=== PATIENT | male | born 1965 | race Caucasian/White ===

== ENCOUNTER 2021-02-27 07:26 | Emergency (ER) | payer BC, SELFPAY ==
--- NOTE | ~2021-02-27 | XR_ITS ---
EXAMINATION: XR FOOT, RIGHT CLINICAL INFORMATION: Plantar aspect foot bruising, ecchymosis, hyperextension. COMPARISON: None TECHNIQUE: AP, lateral, and oblique views of the right foot. FINDINGS: Small ossific density adjacent to the medial aspect of the 1st metatarsal head. This appears corticated, and is suspected to be chronic. No visible acute fracture otherwise. No dislocation. Alignment is maintained. Achilles tendon insertional enthesopathy. XR/XR foot RT min 3V IMPRESSION: Small ossification adjacent to the medial aspect of the 1st metatarsal head, is suspected to be chronic. Clinically correlate for focal symptoms in this region. Otherwise, no visible acute fracture or dislocation.
[2021-02-27 07:54] VITALS: BP 158/110; PULSE 73; RESP 18; TEMP 36.8; O2SAT 100; BMI 32.1
[2021-02-27 09:44] VITALS: BP 146/93; PULSE 66; RESP 19; TEMP 36.6; O2SAT 97
--- NOTE | 2021-02-27 09:50 | ED.LOWEXIN ---
HPI - Extremity Injury (Lower) General Chief Complaint: Extremity Injury, Lower Stated Complaint: R LEG FOOT PAIN Time Seen by Provider: 02/27/21 08:44 Source: patient Mode of arrival: ambulatory History of Present Illness HPI Narrative: 55-year-old male with past medical history of hypertension presenting to the ED complaining of plantar aspect right foot pain, swelling, and ecchymosis s/p pushing truck frame last night and hearing a pop. Reports increased pain with any standing/ambulation or hyper extension. Admits was hyperextension injury. Denies direct injury/trauma or fall/crushing. Denies numbness, tingling, weakness. Related Data Previous Rx's Medication Instructions Recorded acetaminophen 500 mg tablet 500 mg PO Q6H PRN #20 tab 02/27/21 (Tylenol Extra Strength) naproxen 500 mg tablet 500 mg PO BID PRN 10 Days #20 tab 02/27/21 Allergies Allergy/AdvReac Type Severity Reaction Status Date / Time Penicillins [PENICILLINS] Allergy Unknown LIP Unverified 03/12/20 15:06 SWELLING AND MARIAN Sulfa (Sulfonamide Allergy Unknown LIPS SWELL Unverified 03/12/20 15:06 Antibiotics) WITH RASH [SULFA (SULFONAMIDE ANTIBIOTICS)] penicillin Allergy Unknown Uncoded 02/18/19 00:00 Review of Systems Review of Systems: Constitutional: No Fever, No Chills ENT/Mouth: No Ear Pain, No Nasal Congestion Cardiovascular: No Chest Pain, No SOB Respiratory: No Cough Gastrointestinal: No Nausea, No Vomiting, No Abdominal pain Musculoskeletal: + joint pain, No Myalgias, + Joint Swelling Skin: No Skin Lesions, No rash Neuro: No Weakness, No Numbness, No Paresthesias Yes all other systems are reviewed and are negative [facility] Past Medical History Attestation statement: The following information was validated with the patient. Medical History (Updated 02/27/21 @ 09:52 by KIERRA Avila) Hypertension Social History Social History Patient Tobacco Use Status: Never used Tobacco Use of substances other than those prescribed or required for medical reasons: No Advance Directives: Yes Advance Directives Information Provided: No Advance Directives on File: No Physical Exam Vital Signs: Vital Signs: Last Vital Signs Temp 97.9 F 02/27/21 09:44 Pulse 66 02/27/21 09:44 Resp 19 02/27/21 09:44 BP 146/93 H 02/27/21 09:44 Pulse Ox 97 02/27/21 09:44 Body Mass Index 32.1 Const: General: cooperative and healthy appearing Orientation/consciousness: patient oriented x3 Limitations: no limitations HENMT: Head: Yes normal to inspection Ears: hearing grossly normal bilaterally General nose exam: Normal external nose present Face and sinus: Yes normal facial exam Eyes: General: appearance normal, both eyes and all related structures EOM: EOMs intact bilaterally Neck: Neck: Yes normal visual inspection Resp: Effort & Inspection: normal respiratory effort and no respiratory distress Cardio: Rate: regular rate Peripheral pulses: dorsalis pedis present Skin: Rashes: no rashes Wounds: no wounds Neuro: General: patient oriented x3 Gait exam (Neuro): Normal gait present Extrem: Other: Plantar aspect right foot with notable swelling/ecchymosis and tenderness to palpation greater to medial aspect. Neurovascularly intact. Full range of motion intact. Sensation intact to light touch. Patient is ambulating with steady gait Course Course Course Narrative: XR foot RT min 3V IMPRESSION: Small ossification adjacent to the medial aspect of the 1st metatarsal head, is suspected to be chronic. Clinically correlate for focal symptoms in this region. ? Otherwise, no visible acute fracture or dislocation. >> patient offered hard-soled shoe however did not like the fit. Discussed needed follow-up with orthopedics/is PCP for MRI, he verbalized understanding feel safe for discharge home MDM - Extremity Injury (Lower) MDM Narrative Medical decision making narrative: 55-year-old male with past medical history of hypertension presenting to the ED complaining of plantar aspect right foot pain, swelling, and ecchymosis s/p pushing truck frame last night and hearing a pop. On exam initially hypertensive, resolved without intervention. Physical exam as above, concern for ligamental or tendon injury, low concern for fracture/dislocation Will obtain x-rays Discussed with patient likely needs MRI Lab Data Attestation: I reviewed the patient's lab results. Discharge Plan Discharge Clinical Impression: Acute foot pain Qualifiers: Laterality: right Qualified Code(s): M79.671 - Pain in right foot Patient Disposition: Home, Self-Care Instructions: Arthralgia (ED) Additional Instructions: Your x-ray did not show any acute break You likely need an MRI to look at ligamental or tendon injury Ice and elevate your foot, then apply heat Naproxen as an anti-inflammatory/pain medication, take with food Call the orthopedic doctor for follow-up Also call your primary care doctor Prescriptions: New acetaminophen [Tylenol Extra Strength] 500 mg tablet 500 mg PO Q6H PRN (Reason: pain or fever) Qty: 20 RF: 0 naproxen 500 mg tablet 500 mg PO BID PRN (Reason: pain) 10 Days Qty: 20 RF: 0 Referrals: Rodney Yee PA-C [Physician Environmental Science Program Director] - 3 days
== END 2021-02-27 10:05 | disposition home or self-care (01) ==
PROVIDERS: Emergency Provider Student in an Organized Health Care Education/Training Program; PCP Internal Medicine
DX: M79.671 Pain in right foot (principal); I10 Essential (primary) hypertension
CPT/HCPCS: 73630; 99283; 99284

== ENCOUNTER 2022-12-29 11:18 | Outpatient (REF) | payer BC, SELFPAY | END 2022-12-29 11:19 | disposition home or self-care (01) | LOC: HO.HMGCX 11:18 | PROVIDERS: PCP Internal Medicine; Visit Provider Internal Medicine | DX: J18.9 Pneumonia, unspecified organism (principal) | CPT/HCPCS: 71046 ==

== ENCOUNTER 2023-01-16 18:59 | Emergency (ER) | payer BC, SELFPAY ==
--- NOTE | ~2023-01-16 | XR_ITS ---
EXAMINATION: XR ELBOW, RIGHT CLINICAL INFORMATION: Pain COMPARISON: None available. TECHNIQUE: AP, lateral, and oblique views of the right elbow. FINDINGS: The bones and soft tissues are normal. No joint effusion. Alignment is anatomic. Joint spaces are maintained. Prominent calcification at the lateral epicondyle. XR/XR elbow RT min 3V IMPRESSION: Prominent calcification at the lateral epicondyle may be sequela of lateral epicondylitis or possibly avulsion fracture. Recommend clinical correlation and consider MRI if warranted.
[2023-01-16 19:28] VITALS: BP 172/106; PULSE 100; RESP 18; TEMP 36; O2SAT 98; BMI 35.4
--- NOTE | 2023-01-16 19:28 | ED.GENADULT ---
HPI - General Adult General Chief complaint: Extremity Injury, Upper Stated complaint: right elbow injury Time Seen by Provider: 01/16/23 20:24 Related Data Home Medications Medication Instructions Recorded Confirmed lisinopril 20 mg tablet 20 mg PO DAILY 02/13/23 metoprolol succinate 50 mg 50 mg PO DAILY 02/13/23 tablet,extended release 24 hr Previous Rx's Medication Instructions Recorded tadalafil 5 mg tablet (Cialis) 5 mg PO DAILY 90 days #90 tabs 03/03/23 Allergies Allergy/AdvReac Type Severity Reaction Status Date / Time Penicillins [PENICILLINS] Allergy Unknown LIP Verified 03/03/23 15:26 SWELLING AND MARIAN Sulfa (Sulfonamide Allergy Unknown LIPS SWELL Verified 03/03/23 15:26 Antibiotics) WITH RASH [SULFA (SULFONAMIDE ANTIBIOTICS)] [facility] Past Medical History Medical History Hypertension Social History Social History Alcohol intake: current Alcohol intake frequency: holidays/special occasions only Patient Tobacco Use Status: Never used Tobacco Physical Exam ED Vital Signs: BMI result Body Mass Index 35.4 Course Course Course Narrative: RME- 57-year-old male presents for evaluation of right elbow pain. He reports injury 1 month ago. He has been taking ibuprofen and aspirin with minimal relief of his symptoms. He has not had any imaging. Plan for x-ray of the right elbow Medications Administered Discontinued Medications Generic Name Dose Route Start Last Admin Trade Name Freq PRN Reason Stop Dose Admin Lisinopril 20 mg 01/16/23 20:50 01/16/23 20:56 Lisinopril 20 Mg Tablet PO 01/16/23 20:51 20 mg ONCE ONE Administration Protocol Metoprolol Succinate 50 mg 01/16/23 20:50 01/16/23 20:56 Metoprolol Succinate Er 50 Mg Tab.Er.24h PO 01/16/23 20:51 50 mg ONCE ONE Administration Protocol Discharge Plan Discharge Clinical Impression: Elbow sprain, Hypertension Patient Disposition: Home, Self-Care Instructions: Elbow Sprain (ED), Hypertension (ED), R.I.C.E. Treatment (ED) Additional Instructions: Please take your blood pressure medication on a regular basis Prescriptions: No Action tadalafil [Cialis] 5 mg tablet 5 mg PO DAILY 90 Days Qty: 90 0RF Rx Instructions: BIN [id number] [facility] [id number] metoprolol succinate 50 mg tablet extended release 24 hr 50 mg PO DAILY lisinopril 20 mg tablet 20 mg PO DAILY Referrals: Damion Moreno MD [Physician] - 01/18/23 Lamont Bennett MD [Primary Care Provider] - 01/18/23 Interventions: ED Discharge Assessment Last Done: 01/16/23 22:34 Discharge Date/Time: 01/16/23 22:35
[2023-01-16 20:40] VITALS: BP 183/116; PULSE 93; RESP 18; TEMP 36.4; O2SAT 97
--- NOTE | 2023-01-16 20:48 | PC.NURSE ---
reports was working on car laying on concrete for a while- pinkness to inside of elbow. md attending in room aware elevated bp 180s/116. denies dizziness/sob/cp. denies trauma to area. reports has not taken bp meds today and not sure which ones he takes
[2023-01-16] MEDS: Metoprolol Succinate ER 50 MG TAB.ER.24H PO (20:56)
[2023-01-16] MEDS: lisinopriL 20 MG TABLET PO (20:56)
--- NOTE | 2023-01-16 21:01 | ED.EXTPRO ---
HPI - Extremity Problem General Chief complaint: Extremity Injury, Upper Stated complaint: right elbow injury Time Seen by Provider: 01/16/23 20:24 History of Present Illness HPI Narrative: Patient is a 57-year-old male presents today with having a 1 month history of right elbow pain. The pain is most apparent over the medial epicondyle. Patient denies any trauma. About a month ago patient was working on a car. He subsequently had pain the next morning. There is no specific trauma. Denies any systemic complaints. No fever no chills. Has a history of hypertension but is noncompliant with his medications. Patient denies any diaphoresis. No chest pain or shortness of breath. No abdominal pain. Pain is improved with Motrin. Patient has been taking Motrin for about a month. Related Data Previous Rx's Medication Instructions Recorded acetaminophen 500 mg tablet 500 mg PO Q6H PRN pain or fever 02/27/21 (Tylenol Extra Strength) #20 tabs naproxen 500 mg tablet 500 mg PO BID PRN pain 10 days #20 02/27/21 tabs Allergies Allergy/AdvReac Type Severity Reaction Status Date / Time Penicillins [PENICILLINS] Allergy Unknown LIP Verified 01/16/23 19:28 SWELLING AND MARIAN Sulfa (Sulfonamide Allergy Unknown LIPS SWELL Verified 01/16/23 19:28 Antibiotics) WITH RASH [SULFA (SULFONAMIDE ANTIBIOTICS)] Review of Systems Review of Systems: No fever no chills no chest pain or shortness of breath no nausea no vomiting no diaphoresis Yes all other systems are reviewed and are negative [facility] Past Medical History Attestation statement: The following information was validated with the patient. Medical History Hypertension Social History Social History Alcohol intake: current Alcohol intake frequency: holidays/special occasions only Patient Tobacco Use Status: Never used Tobacco Use of substances other than those prescribed or required for medical reasons: No Advance Directives: No Advance Directives Information Provided: No Physical Exam Vital Signs: Vital Signs: Last Vital Signs Temp 97.6 F 01/16/23 20:40 Pulse 93 01/16/23 20:40 Resp 18 01/16/23 20:40 BP 183/116 H 01/16/23 20:40 Pulse Ox 97 01/16/23 20:40 O2 Del Method Room Air 01/16/23 20:40 BMI result Body Mass Index 35.4 Appearance: Alert. Oriented X3. No acute distress. Eyes: Pupils equal, round and reactive to light. ENT: Pharynx normal. Neck: Normal inspection. Neck supple. No lymph nodes noted. No crepitus CVS: Normal heart rate and rhythm. Pulses normal. Normal S1 and S2 Respiratory: No respiratory distress. Breath sounds normal. No Wheezing. No rales Abdomen: Soft and nontender. No rigidity. No distention. good BS x4 Skin: Skin warm and dry. Normal skin color. Normal skin turgor. Extremities: Examination of the right elbow showed no tenderness on palpation of the medial or lateral epicondyle. No tenderness on palpation over the olecranon. Range of motion grossly intact. Supination intact distally neurovascularly intact sensation over the median radial ulnar nerve intact movement over the wrist intact there is no anatomical snuffbox tenderness. Movement over the finger intact. Capillary refill less than 2 seconds. Skin intact Neuro: Oriented X 3. No motor deficit. No sensory deficit. Moving all extermities. No slurred speech Medications Administered Discontinued Medications Generic Name Dose Route Start Last Admin Trade Name Freq PRN Reason Stop Dose Admin Lisinopril 20 mg 01/16/23 20:50 01/16/23 20:56 Lisinopril 20 Mg Tablet PO 01/16/23 20:51 20 mg ONCE ONE Administration Protocol Metoprolol Succinate 50 mg 01/16/23 20:50 01/16/23 20:56 Metoprolol Succinate Er 50 Mg Tab.Er.24h PO 01/16/23 20:51 50 mg ONCE ONE Administration Protocol Medical Decision Making Medical Decision Making [facility] Narrative: Patient well appearing no acute distress. X-ray of the elbow showed no acute fracture. There is possible lateral epicondyle inflammation. But there is no acute tenderness there. Will have patient follow-up with Orthopedic on an outpatient basis. patient's blood pressure was extremely elevated. When asked he has been noncompliant with his medication including metoprolol and lisinopril. These medication was given Bactrim will monitor for an hour and recheck patient's blood pressure. Differential Diagnosis Differential Diagnoses: The differential diagnosis associated with the presentation includes Hypertension, tendinitis, little league elbow, tennis elbow Independent Interpretation I performed an independent interpretation of an: Plain X-Ray Interpretation: X-ray showed no acute fracture Radiology Impression Discussion of test interpretation with radiology: I have reviewed the radiologist's reading. Radiologist Impression: Question tendinitis over the lateral epicondyle versus avulsion fracture Discharge Plan Discharge Clinical Impression: Elbow sprain, Hypertension Patient Disposition: Home, Self-Care Instructions: Hypertension (ED), Elbow Sprain (ED), R.I.C.E. Treatment (ED) Additional Instructions: Please take your blood pressure medication on a regular basis Prescriptions: No Action acetaminophen [Tylenol Extra Strength] 500 mg tablet 500 mg PO Q6H PRN (Reason: pain or fever) Qty: 20 0RF naproxen 500 mg tablet 500 mg PO BID PRN (Reason: pain) 10 Days Qty: 20 0RF Referrals: Damion Moreno MD [Physician] - 01/18/23 Lamont Bennett MD [Primary Care Provider] - 01/18/23
[2023-01-16 21:54] VITALS: BP 174/114
[2023-01-16 22:03] VITALS: BP 172/106
== END 2023-01-16 22:35 | disposition home or self-care (01) ==
PROVIDERS: Emergency Provider Emergency Medicine Emergency Medical Services; PCP Internal Medicine
DX: S53.401A Unspecified sprain of right elbow, initial encounter (principal); X58.XXXA Exposure to other specified factors, initial encounter; I10 Essential (primary) hypertension; Z91.148 Patient's other noncompliance with medication regimen for other reason; Z79.1 Long term (current) use of non-steroidal anti-inflammatories (NSAID); Y93.9 Activity, unspecified; Y92.89 Other specified places as the place of occurrence of the external cause; Y99.9 Unspecified external cause status
CPT/HCPCS: 73080; 99283; 99284

== ENCOUNTER 2023-02-13 12:46 | Outpatient (AMB) | payer BC, SELFPAY ==
--- NOTE | 2023-02-13 13:07 | MHC.OFFVIS ---
Intake Intake Visit Reasons: low testosterone Intake Note: New Patient presents for initial visit low testosterone (testerone 141) Urology Medications: none Blood Thinner: none Area Forester Required: No Accompanied by: Self / Same As Patient Allergies Penicillins [PENICILLINS] Allergy (Unknown, Verified 02/13/23 16:21) LIP SWELLING AND MARIAN Sulfa (Sulfonamide Antibiotics) [SULFA (SULFONAMIDE ANTIBIOTICS)] Allergy (Unknown, Verified 02/13/23 16:21) LIPS SWELL WITH RASH Medication List - Last Reconciled 02/13/23 by CAMILLE DexterP- lisinopril 20 mg PO DAILY metoprolol succinate ER 50 mg PO DAILY HPI HPI Comments History of Present Illness Details Leo is a very pleasant 57-year-old male patient of Dr. Bennett. He has a past medical history of hypertension. He presents to the office today as a new patient for hypogonadism. In discussion with the patient today he reports discussing increasing weight gain, fatigue, and low libido with PCP at which time testosterone levels were drawn. Testosterone level 12/16--141. Discussed obtaining redraw of testosterone 2 hours upon wakening as well as free testosterone for further assessment evaluation. Patient otherwise denies any urinary issues or concerns at this time. In office urinalysis results reviewed with the patient today. When asked patient denies urinary urgency, urinary frequency, incontinence, nocturia, hematuria, dysuria, foul smelling urine, changes to urinary stream, flank pain, fever, and or chills. He is happy with his current voiding parameters. Discussed at length potential causes for hypogonadism. Patient otherwise denies any other issues or concerns at this time. Discussed importance of adequate sleep, healthy eating habits, and weight management for improvement in hypogonadism as well as overall health and well-being. [facility] Medical History Hypertension Social History Alcohol intake: current Alcohol intake frequency: holidays/special occasions only Patient Tobacco Use Status: Never used Tobacco Review of Systems Const All systems reviewed & are unremarkable except as noted in HPI and below Reports as per HPI Eyes Reports no additional complaints ENT Reports no additional complaints Card Reports as per HPI Resp Reports no additional complaints GI Reports no additional complaints Reports as per HPI Musc Reports no additional complaints Neuro Reports no additional complaints Psych Reports as per HPI Jhon/Lymph Reports no additional complaints Aller/Immun Reports no additional complaints Physical Exam Const General: cooperative, healthy appearing, comfortable, no acute distress, well developed, alert and awake Nutritional Appearance: overweight Orientation/consciousness: patient oriented x3 Limitations: no limitations HEENT Head: Yes normal to inspection, Yes normocephalic and Yes atraumatic Ears: hearing grossly normal bilaterally Eyes General: appearance normal, both eyes and all related structures Neck Neck: Yes normal visual inspection and Yes trachea midline Chest Chest palpation & inspection: normal inspection of the chest Resp Effort & Inspection: normal respiratory effort and able to speak in complete sentences Cardio Rate: regular rate GI Inspection: Yes normal to inspection General: Yes no CVA tenderness Back/Spine/Pelvis Back: no CVA tenderness Skin General skin exam: no rashes or lesions noted Neuro General: patient oriented x3 Extrem General: Yes normal to inspection Psych Appearance: grossly normal and well kempt Mental Status: mental status grossly normal Speech and movement: Normal speech and movement present and Clear speech present Affect: normal affect Attitude: cooperative Thought process: Normal thought process present Thought content: Normal thought content present Insight: Fair insight present (Psych) Judgement: Fair judgement present (Psych) Results AMB Urinalysis, Automated UA Leukoctes 0 Jada/uL Last Edit by [employer] on 02/13/23 13:20 UA Nitrite Last Edit by [employer] on 02/13/23 13:20 UA Urobilinogen 0.2 mg/dL Last Edit by [employer] on 02/13/23 13:20 UA Protein 0 mg/dL Last Edit by [employer] on 02/13/23 13:20 UA pH 6.5 Last Edit by [employer] on 02/13/23 13:20 UA Blood 0 Baljit/uL Last Edit by [employer] on 02/13/23 13:20 UA Specific [place] 1.015 Last Edit by [employer] on 02/13/23 13:20 UA Ketone Negative Last Edit by [employer] on 02/13/23 13:20 UA Bilirubin 0 mg/dL Last Edit by [employer] on 02/13/23 13:20 UA Glucose 0 mg/dL Last Edit by [employer] on 02/13/23 13:20 Results Reviewed Results Reviewed: Laboratory Last Values Urine pH (Auto) 6.5 02/13/23 13:13 Specific [place] (Auto) 1.015 02/13/23 13:13 Urine Protein (Auto) 0 mg/dL 02/13/23 13:13 Glucose (UA)(Auto) 0 mg/dL 02/13/23 13:13 Urine Ketones (Auto) Negative 02/13/23 13:13 Urine Blood (Auto) 0 Baljit/uL 02/13/23 13:13 Urine Bilirubin (Auto) 0 mg/dL 02/13/23 13:13 Urine Urobilinogen (Auto) 0.2 mg/dL 02/13/23 13:13 Leukocyte Esterase (Auto) 0 Jada/uL 02/13/23 13:13 Assessment & Plan Assessment & Plan (1) Hypogonadism in male: Code(s): E29.1 - Testicular hypofunction Plan In office urinalysis results reviewed with the patient today. Discussed obtaining redraw of testosterone free and total to hours upon wakening. Will obtain PSA as patient denies having had lab performed. Discussed at length potential causes for hypogondism Discussed at length importance of weight loss, adequate sleep, and exercise to assist with hypogondism as well as for overall health and well-being. Patient denies any urological issues or concerns at this time. He reports to be happy with current voiding parameters. Follow-up in 1-2 weeks with lab to be completed prior; or sooner with any issues, concerns, and or questions. Orders: Orders Testosterone, Free/Total Today E29.1 - Testicular hypofunction Prostate Specific Antigen Today N40.0 - Benign prostatic hyperplasia without lower urinary tract symptoms AMB Urinalysis Automated Today Z13.9 - Encounter for screening, unspecified Patient Instructions: The patient had an opportunity to ask questions regarding the treatment plan. All questions were answered. Physical exam, labs, and imaging were discussed and reviewed in detail. As well as risks, benefits, and discussion of treatment choices. No major barriers to understanding were identified. The patient expressed understanding and agreement with the above treatment plan. The patient was made aware they should contact our office by phone for worsening of their current condition, the appearance of new symptoms, or with any questions or concerns. Compliance is encouraged with any medications and follow up testing that is ordered. It is a privilege to be allowed the opportunity to participate in? your urological care.? Again, if you have any questions or concerns If you have any questions or concerns please do not hesitate to contact me. The office is [phone]. This note is constructed using voice recognition software. While every effort has been made to ensure accuracy bingo manager errors may have been included. Yours sincerely, TESSA Dexter Coding Level of Care Code New Pt Level 3 (94393) Diagnoses Hypogonadism in male E29.1
== END 2023-02-13 13:47 | disposition home or self-care (01) ==
PROVIDERS: PCP Internal Medicine; Visit Provider Nurse Practitioner Family
DX: E29.1 Testicular hypofunction (principal)
CPT/HCPCS: 99203

== ENCOUNTER → 2023-02-13 12:46 | Outpatient (BNVA) | payer BC, SELFPAY | PROVIDERS: PCP Internal Medicine; Visit Provider Nurse Practitioner Family | DX: E29.1 Testicular hypofunction (principal) | CPT/HCPCS: 81003 ==

== ENCOUNTER 2023-02-15 07:08 | Outpatient (REF) | payer BC, SELFPAY ==
[2023-02-15 12:30] LABS: Prostate Specific Antigen 3.71 ng/mL (<0.05-4.0)
[2023-02-20 19:18] LABS: Testosterone, Free 38.9 pg/mL (35.0-155.0); Testosterone, Total 278 ng/dL (250-1100)
== END 2023-02-15 07:09 | disposition home or self-care (01) ==
LOC: HO.HMGCLDS 07:08
PROVIDERS: PCP Internal Medicine; Visit Provider Nurse Practitioner Family
DX: E29.1 Testicular hypofunction (principal); N40.0 Benign prostatic hyperplasia without lower urinary tract symptoms; Z12.5 Encounter for screening for malignant neoplasm of prostate
CPT/HCPCS: 36415; 84153; 84402; 84403

== ENCOUNTER 2023-03-03 13:48 | Outpatient (AMB) | payer BC, SELFPAY ==
--- NOTE | 2023-03-03 13:53 | MHC.OFFVIS ---
Intake Intake Visit Reasons: follow up/labs(set) Intake Note: Patient presents for follow up visit hypogonadism/labs (psa 3.71) (total testosterone 278) Urology Medications: none Blood Thinner: none Hotel Security Officer Required: No Allergies Penicillins [PENICILLINS] Allergy (Unknown, Verified 03/03/23 15:26) LIP SWELLING AND MARIAN Sulfa (Sulfonamide Antibiotics) [SULFA (SULFONAMIDE ANTIBIOTICS)] Allergy (Unknown, Verified 03/03/23 15:26) LIPS SWELL WITH RASH Medication List - Last Reconciled 03/03/23 by TESSA Dexter lisinopril 20 mg PO DAILY metoprolol succinate ER 50 mg PO DAILY HPI HPI Comments History of Present Illness Details Leo is a very pleasant 57-year-old male patient of Dr. Bennett. He has a past medical history of hypertension. He is being followed up on today via telehealth. Of note, patient was seen approximately 2 weeks ago at which time labs were ordered for further assessment evaluation of hypogonadism. These results were reviewed with the patient today. Testosterone levels 12/16--141, 02/15--278 free testosterone 38.9 PSA 02/15--3.7 Discussed trial of low dose Cialis 5mg. Patient reports he continues to improve on lifestyle modifications with adequate sleep, healthy eating habits, and weight management. When asked patient denies urinary urgency, urinary frequency, incontinence, nocturia, hematuria, dysuria, foul smelling urine, changes to urinary stream, flank pain, fever, and or chills. He is happy with his current voiding parameters. Discussed at length potential causes for hypogonadism. Patient otherwise denies any other issues or concerns at this time. Discussed importance of adequate sleep, healthy eating habits, and weight management for improvement in hypogonadism as well as overall health and well-being. [facility] Medical History Hypertension Social History Alcohol intake: current Alcohol intake frequency: holidays/special occasions only Patient Tobacco Use Status: Never used Tobacco Review of Systems Const All systems reviewed & are unremarkable except as noted in HPI and below Reports as per HPI Eyes Reports no additional complaints ENT Reports no additional complaints Card Reports as per HPI Resp Reports no additional complaints GI Reports no additional complaints Reports as per HPI Musc Reports no additional complaints Neuro Reports no additional complaints Psych Reports as per HPI Jhon/Lymph Reports no additional complaints Aller/Immun Reports no additional complaints Physical Exam Const General: cooperative Orientation/consciousness: patient oriented x3 Resp Effort & Inspection: able to speak in complete sentences Neuro General: patient oriented x3 Psych Speech and movement: Clear speech present Attitude: cooperative Thought process: Normal thought process present Thought content: Normal thought content present Insight: Fair insight present (Psych) Judgement: Fair judgement present (Psych) Assessment & Plan Assessment & Plan (1) Hypogonadism in male: Code(s): E29.1 - Testicular hypofunction Plan Recent PSA and testosterone free and total results reviewed with the patient today. Start Cialis 5 mg daily as discussed and prescribed. Discussed at length potential causes for hypogondism Discussed at length importance of weight loss, adequate sleep, and exercise to assist with hypogondism as well as for overall health and well-being. Patient denies any urological issues or concerns at this time. He reports to be happy with current voiding parameters. PSA and testosterone levels in 3 months Follow-up in 3 months with labs to be completed prior; or sooner with any issues, concerns, and or questions. Orders: Orders Prostate Specific Antigen 3 Months E29.1 - Testicular hypofunction Testosterone, Free/Total 3 Months E29.1 - Testicular hypofunction Medications: New tadalafil (Cialis) [facility] [id number] [facility] Group [id number] 5 mg PO DAILY 90 days 90 tabs 0RF Patient Instructions: The patient had an opportunity to ask questions regarding the treatment plan. All questions were answered. Physical exam, labs, and imaging were discussed and reviewed in detail. As well as risks, benefits, and discussion of treatment choices. No major barriers to understanding were identified. The patient expressed understanding and agreement with the above treatment plan. The patient was made aware they should contact our office by phone for worsening of their current condition, the appearance of new symptoms, or with any questions or concerns. Compliance is encouraged with any medications and follow up testing that is ordered. It is a privilege to be allowed the opportunity to participate in? your urological care.? Again, if you have any questions or concerns If you have any questions or concerns please do not hesitate to contact me. The office is [phone]. This note is constructed using voice recognition software. While every effort has been made to ensure accuracy aircraft armament mechanic errors may have been included. Yours sincerely, LORY Dexter- Telehealth Telehealth Location of provider rendering services: practice address Location of patient: address on file Patient Identification confirmed using: Name, : Yes Telehealth method: voice only Patient verbally consented to treatment: Yes Patient verbally consented to billing insurance company: Yes Patient informed of any privacy concerns related to visit: Yes Minutes spent on Phone/Video with Pt.: 20 Coding Level of Care Code Tele New Pt Level 4 (19662) Diagnoses Hypogonadism in male E29.1 Time Spent (min) 20
== END 2023-03-03 15:56 | disposition home or self-care (01) ==
LOC: HO.HUSH 13:48
PROVIDERS: PCP Internal Medicine; Visit Provider Nurse Practitioner Family
DX: E29.1 Testicular hypofunction (principal)
CPT/HCPCS: 99214

== ENCOUNTER → 2023-03-03 13:48 | Outpatient (BNVA) | payer BC, SELFPAY | PROVIDERS: PCP Internal Medicine; Visit Provider Nurse Practitioner Family ==

== ENCOUNTER 2023-04-07 10:37 | Outpatient (AMB) | payer BC, SELFPAY ==
--- NOTE | 2023-04-07 10:39 | MHC.OFFVIS ---
Intake Intake Visit Reasons: Medication review Intake Note: Patient presents for follow up medication review Urology Medications: tadalafil Blood Thinner: none Home Economics Expert Required: No Allergies Penicillins [PENICILLINS] Allergy (Unknown, Verified 04/07/23 11:15) LIP SWELLING AND MARIAN Sulfa (Sulfonamide Antibiotics) [SULFA (SULFONAMIDE ANTIBIOTICS)] Allergy (Unknown, Verified 04/07/23 11:15) LIPS SWELL WITH RASH Medication List - Last Reconciled 04/07/23 by TESSA Dexter lisinopril 20 mg PO DAILY metoprolol succinate ER 50 mg PO DAILY HPI HPI Comments History of Present Illness Details Leo is a very pleasant 57-year-old male patient of Dr. Bennett. He has a past medical history of hypertension. He is being followed up on today via telehealth. Of note, patient was seen approximately 1 month ago at which time he was started on low-dose 5 mg Cialis. However, in discussion with the patient today reports noting back pain after starting Cialis. He reports having stopped medication as he was unsure if this was related to the medication. Labs are as follows: Testosterone levels 12/16--141, 02/15--278 free testosterone 38.9 PSA 02/15--3.7 Patient reports he continues to improve on lifestyle modifications with adequate sleep, healthy eating habits, and weight management. When asked patient denies urinary urgency, urinary frequency, incontinence, nocturia, hematuria, dysuria, foul smelling urine, changes to urinary stream, flank pain, fever, and or chills. He is happy with his current voiding parameters. Discussed at length potential causes for hypogonadism. Patient otherwise denies any other issues or concerns at this time. Discussed importance of adequate sleep, healthy eating habits, and weight management for improvement in hypogonadism as well as overall health and well-being. [facility] Medical History Hypertension Social History Alcohol intake: current Alcohol intake frequency: holidays/special occasions only Patient Tobacco Use Status: Never used Tobacco Review of Systems Const All systems reviewed & are unremarkable except as noted in HPI and below Reports as per HPI Eyes Reports no additional complaints ENT Reports no additional complaints Card Reports as per HPI Resp Reports no additional complaints GI Reports no additional complaints Reports as per HPI Musc Reports no additional complaints Neuro Reports no additional complaints Psych Reports as per HPI Jhon/Lymph Reports no additional complaints Aller/Immun Reports no additional complaints Physical Exam Const General: cooperative Orientation/consciousness: patient oriented x3 Resp Effort & Inspection: able to speak in complete sentences Neuro General: patient oriented x3 Psych Speech and movement: Clear speech present Attitude: cooperative Thought process: Normal thought process present Thought content: Normal thought content present Insight: Fair insight present (Psych) Judgement: Fair judgement present (Psych) Assessment & Plan Assessment & Plan (1) Hypogonadism in male: Code(s): E29.1 - Testicular hypofunction (2) Fatigue: Code(s): R53.83 - Other fatigue Plan Restart Cialis 5 mg daily as discussed and prescribed. Discussed at length potential causes for hypogondism Discussed at length importance of weight loss, adequate sleep, and exercise to assist with hypogondism as well as for overall health and well-being. Patient denies any urological issues or concerns at this time. He reports to be happy with current voiding parameters. Patient will call next week; if Cialis with no side effects and will redraw testosterone free and total in 3 months status post 3 months of low-dose Cialis treatment versus redraw of testosterone free and total now. Patient Instructions: The patient had an opportunity to ask questions regarding the treatment plan. All questions were answered. Physical exam, labs, and imaging were discussed and reviewed in detail. As well as risks, benefits, and discussion of treatment choices. No major barriers to understanding were identified. The patient expressed understanding and agreement with the above treatment plan. The patient was made aware they should contact our office by phone for worsening of their current condition, the appearance of new symptoms, or with any questions or concerns. Compliance is encouraged with any medications and follow up testing that is ordered. It is a privilege to be allowed the opportunity to participate in? your urological care.? Again, if you have any questions or concerns If you have any questions or concerns please do not hesitate to contact me. The office is [phone]. This note is constructed using voice recognition software. While every effort has been made to ensure accuracy tower crane operator errors may have been included. Yours sincerely, Jolynn Johnson SUBSTATION OPERATOR CHIEF-BC Telehealth Telehealth Location of provider rendering services: practice address Location of patient: address on file Patient Identification confirmed using: Name, : Yes Telehealth method: voice only Patient verbally consented to treatment: Yes Patient verbally consented to billing insurance company: Yes Patient informed of any privacy concerns related to visit: Yes Minutes spent on Phone/Video with Pt.: 15 Coding Level of Care Code Tele Est Pt Level 2 (85543) Diagnoses Hypogonadism in male E29.1 Fatigue R53.83
== END 2023-04-07 11:58 | disposition home or self-care (01) ==
LOC: HO.HUSH 10:37
PROVIDERS: PCP Internal Medicine; Visit Provider Nurse Practitioner Family
DX: E29.1 Testicular hypofunction (principal); R53.83 Other fatigue
CPT/HCPCS: 99442

== ENCOUNTER → 2023-04-07 10:37 | Outpatient (BNVA) | payer BC, SELFPAY | PROVIDERS: PCP Internal Medicine; Visit Provider Nurse Practitioner Family ==

== ENCOUNTER 2024-10-08 08:07 | Outpatient (AMB) | payer BC, SELFPAY ==
--- NOTE | 2024-10-08 08:08 | AM.OFFWIN_ITS ---
Intake Vital Signs 10/08/24 08:13 Weight 266 lb BP 140/88 H Blood Pressure Location Rt brachial Position Sitting Pulse 69 Pulse Source Pulse Oximeter Pulse Oximetry (%) 95 Oxygen Delivery Method Room Air Intake Visit Reasons: EP headache, not feeling well ?BP Intake Note: Patient here for headaches and checked his BP and it has been elevated which has been going on for a couple of years. Patient Tobacco Use Status: Never used Tobacco Allergies Penicillins [PENICILLINS] Allergy (Unknown, Verified 10/08/24 08:21) LIP SWELLING AND MARIAN Sulfa (Sulfonamide Antibiotics) [SULFA (SULFONAMIDE ANTIBIOTICS)] Allergy (Unknown, Verified 10/08/24 08:21) LIPS SWELL WITH RASH Do you need a note to return to daycare/school/sports/work: No HPI HPI Comments History of Present Illness Details History of Present Illness - The patient is a 59-year-old male pres enting with elevated blood pressure readings. - Reports of feeling unwell prompted i nitial blood pressure checks, revealing a high reading of 140/98 mmHg. - Subsequent readings during the day ind icated pressures of 167/103 mmHg, 160 mmHg, and 174/103 mmHg. - Current medications include lisinopril (40 mg) and metoprolol ER (100 mg); however, current regimen is insufficient as evidenced by high recorded pressures. - High stress levels from occupational d emands and impending travel are noted as exacerbating factors. - Headaches correlate with periods of el evated blood pressure, suggesting a need for medication adjustment. - The patient is aware of his primary ca re provider?s impending mcfp and the requisite transfer of care. Physical Exam General: Cooperative, healthy appearing, comfortable, no acute distress and well developed Orientation: Patient oriented x3 Limitations: No limitations Head: Normal to inspection Ears: Hearing grossly normal bilaterally Nose: Normal External nose present Face and sinus: Normal facial exam Eyes: Appearance normal, both eyes and all related structures Neck: Normal visual inspection and Yes full ROM Respiratory: Normal respiratory effort and able to speak in complete sentences. Skin: No rashes or lesions noted Neuro: Patient oriented x3 Extremities: Normal to inspection [facility] Medical History Hypertension Social History Alcohol intake: current Alcohol intake frequency: holidays/special occasions only Patient Tobacco Use Status: Never used Tobacco Review of Systems Const All systems reviewed & are unremarkable except as noted in HPI and below Physical Exam Vital Signs: Last Vital Signs Pulse 69 10/08/24 08:13 BP 140/98 H 10/08/24 08:13 Pulse Ox 95 10/08/24 08:13 Oxygen Delivery Method Room Air 10/08/24 08:13 Assessment & Plan Assessment & Plan (1) Elevated blood pressure reading in office with diagnosis of hypertension: Code(s): I10 - Essential (primary) hypertension Plan: Today, his BP is 140/88 and he does have a slight headache. Coordination with existing primary care within the next 1-2 weeks is paramount before the provider's mcfp, pt was educated to go to the ED if hypertension escalates to critical levels (systolic >180 or diastolic >110 and headache or dizzyness). Patient was advised to maintain a detailed log of blood pressure readings, foc using on consistent timing and documentation of how he is feeling next to the BP reading to assess adequacy of current treatment. Considering inefficacy with current antihypertensive therapy, adding another agent such as amlodipine is prudent, contingent on thorough laboratory evaluation for renal function adaptation to current regimen. Lifestyle modification, notably through dietary sodium reduction and increased physical activity, is emphasized alongside decreased alcohol consumption to naturally alleviate hypertension. Patient is not a smoker. Follow-up with healthcare providers should be expedited to ensure ongoing management and adjustment of therapeutic interventions as necessary. Patient was informed and verbally consented to the use of an ambient scribe for clinic note documentation during this visit. Coding Level of Care Code New Pt Level 3 (17929) Diagnoses Elevated blood pressure reading in office with diagnosis of hypertension I10
[2024-10-08 08:13] VITALS: BP 140/88; PULSE 69; O2SAT 95
== END 2024-10-08 09:06 | disposition home or self-care (01) ==
PROVIDERS: PCP Internal Medicine; Visit Provider Physician Assistant
DX: I10 Essential (primary) hypertension (principal)

== ENCOUNTER → 2024-10-08 08:07 | Outpatient (BNVA) | payer BC, SELFPAY | PROVIDERS: PCP Internal Medicine; Visit Provider Physician Assistant ==

== ENCOUNTER 2024-10-17 09:49 | Outpatient (REF) | payer BC, SELFPAY ==
[2024-10-17 13:08] LABS: MANUAL DIFF FLAG NO
[2024-10-17 13:16] LABS: Basophils Percent Auto 0.5 % (0-2); Eosinophils Absolute Auto 0.2 X10*3/uL (0.0-0.4); Eosinophils Percent Auto 3.6 % (0-4); Hematocrit 45.4 % (42.0-52.0); Hemoglobin 15.7 g/dl (14.0-18.0); Imm Gran Abs Auto 0.02 X10*3/uL (0.00-0.03); Imm Gran Pct Auto 0.3 % (0.0-0.4); Lymphocytes Absolute Auto 1.3 X10*3/uL (1.2-4.9); Lymphocytes Percent Auto 19.2 % (20-40); Mean Corpuscular HGB Conc 34.6 g/dl (31.0-36.0); Mean Corpuscular Hemoglobin 30.7 pg (27.0-33.0); Mean Corpuscular Volume 88.8 fL (80.0-98.0); Mean Platelet Volume 10.5 fL (9.4-12.4); Monocytes Absolute Auto 0.5 X10*3/uL (0.1-1.2); Neutrophils Absolute Auto 4.6 x10*3/uL (2.0-8.3); Neutrophils Percent Auto 69.4 % (45-73); Platelet Count 219 X10*3/uL (160-400); Red Blood Count 5.11 X10*6/uL (4.60-5.80); Red Cell Distribution Width 13.1 % (11.0-16.0); White Blood Count 6.6 X10*3/uL (4.8-10.8)
[2024-10-17 13:47] LABS: Alanine Aminotransferase 31 U/L (0-40); Albumin Level 4.1 g/dL (3.5-5.0); Alkaline Phosphatase 91 U/L (39-117); Anion Gap 8 (12-20); Aspartate Amino Transferase 26 U/L (5-37); Bilirubin Total 0.5 mg/dL (0.0-1.0); Blood Urea Nitrogen 12 mg/dL (9-16); Calcium 9.6 mg/dL (8.4-10.2); Carbon Dioxide 30 mmol/L (22-29); Chloride 107 mmol/L (96-108); Cholesterol 228 mg/dL (<200); Estimated Glomerular Filt Rate > 60; Glucose Fasting 133 mg/dL (60-99); HDL Cholesterol 39 mg/dL (>40); LDL Cholesterol Calculated 151 mg/dL (<100); Potassium 4.2 mmol/L (3.3-5.1); Prostate Specific Antigen 4.11 ng/mL (<0.05-4.0); Sodium 141 mmol/L (135-145); Triglycerides 192 mg/dL (<150)
== END 2024-10-17 09:50 | disposition home or self-care (01) ==
LOC: HO.HMGCLDS 09:49
PROVIDERS: PCP Internal Medicine; Visit Provider Internal Medicine
DX: Z13.89 Encounter for screening for other disorder (principal)
CPT/HCPCS: 36415; 80053; 80061; 84153; 85025

== ENCOUNTER 2024-11-27 15:10 | Outpatient (AMB) | payer BC, SELFPAY ==
--- NOTE | 2024-11-27 15:11 | MHC.OFFVIS ---
Intake Visit Reasons: Elevated PSA (seen 2022) Intake Note: Pt presents to the office today for elevated PSA. Pt was last seen in 2022. Urology Meds:None Blood thinners:None Allergies Penicillins [PENICILLINS] Allergy (Unknown, Verified 11/27/24 20:33) LIP SWELLING AND MARIAN Sulfa (Sulfonamide Antibiotics) [SULFA (SULFONAMIDE ANTIBIOTICS)] Allergy (Unknown, Verified 11/27/24 20:33) LIPS SWELL WITH RASH Medication List - Last Reconciled 11/27/24 by LORY Dexter- ciprofloxacin HCl 500 mg PO Q12H 14 days lisinopril 40 mg PO DAILY metoprolol succinate ER 100 mg PO DAILY HPI Comments Details: Leo is a very pleasant 59 year-old male patient of Dr. Bennett. He has a past medical history of hypertension. He presents to the office today for follow-up. Of note, patient was seen approximately 18 months ago for borderline hypogonadism at which time recommendations were made for daily dosing of low-dose Cialis. However, patient reports low-dose Cialis had been causing him a significant amount of back pain and he has since discontinued the medication. He reports most recently he followed up with his PCP and recommendations were made for follow-up with urology as his PSA was noted to be elevated. PSAs are as follows: PSA 02/15 3.7, 10/18 4.1 Testosterone levels 12/16 141, 02/15 278 free testosterone 38.9 We discussed at length potential causes of elevated PSA as well as borderline hypogonadism. YESSI was performed left side of the prostate was noted to be boggy. We discussed potential for prostatitis given findings on YESSI. When asked he denies any bothersome urinary issues. He denies urinary urgency, urinary frequency, incontinence, nocturia, hematuria, dysuria, foul smelling urine, changes to urinary stream, flank pain, fever, and or chills. Discussed importance of adequate sleep, healthy eating habits, and weight management for improvement in hypogonadism as well as overall health and well-being. [facility] Medical History Hypertension Social History Alcohol intake: current Alcohol intake frequency: holidays/special occasions only Patient Tobacco Use Status: Never used Tobacco Review of Systems Const All systems reviewed & are unremarkable except as noted in HPI and below Physical Exam Const General: cooperative, healthy appearing, comfortable, no acute distress, well developed, alert and awake Nutritional Appearance: overweight Orientation/consciousness: patient oriented x3 Limitations: no limitations HEENT Head: Yes normal to inspection, Yes normocephalic and Yes atraumatic Ears: hearing grossly normal bilaterally Eyes General: appearance normal, both eyes and all related structures Neck Neck: Yes normal visual inspection and Yes trachea midline Chest Chest palpation & inspection: normal inspection of the chest Resp Effort & Inspection: normal respiratory effort and able to speak in complete sentences Cardio Rate: regular rate GI Inspection: Yes normal to inspection General: Yes no CVA tenderness Back/Spine/Pelvis Back: no CVA tenderness Skin General skin exam: no rashes or lesions noted Neuro General: patient oriented x3 Extrem General: Yes normal to inspection Psych Appearance: grossly normal and well kempt Mental Status: mental status grossly normal Speech and movement: Normal speech and movement present and Clear speech present Affect: normal affect Attitude: cooperative Thought process: Normal thought process present Thought content: Normal thought content present Insight: Fair insight present (Psych) Judgement: Fair judgement present (Psych) Results AMB Urinalysis, Automated UA Leukoctes 0 Jada/uL Last Edit by Leslee Blackwood CMA on 11/27/24 15:21 UA Nitrite Negative Last Edit by Leslee Blackwood CMA on 11/27/24 15:21 UA Urobilinogen 3.5 mg/dL Last Edit by Leslee Blackwood CMA on 11/27/24 15:21 UA Protein 0 mg/dL Last Edit by Leslee Blackwood CMA on 11/27/24 15:21 UA pH 6.0 Last Edit by Leslee Blackwood CMA on 11/27/24 15:21 UA Blood 0 Baljit/uL Last Edit by Leslee Blackwood CMA on 11/27/24 15:21 UA Specific [place] 1.015 Last Edit by Leslee Blackwood CMA on 11/27/24 15:21 UA Ketone Negative Last Edit by Leslee Blackwood CMA on 11/27/24 15:21 UA Bilirubin 0 mg/dL Last Edit by Leslee Blackwood CMA on 11/27/24 15:21 UA Glucose 0 mg/dL Last Edit by Leslee Blackwood CMA on 11/27/24 15:21 Results Reviewed Results Reviewed: Laboratory Last Values Urine pH (Auto) 6.0 11/27/24 15:15 Specific [place] (Auto) 1.015 11/27/24 15:15 Urine Protein (Auto) 0 mg/dL 11/27/24 15:15 Glucose (UA)(Auto) 0 mg/dL 11/27/24 15:15 Urine Ketones (Auto) Negative 11/27/24 15:15 Urine Blood (Auto) 0 Baljit/uL 11/27/24 15:15 Urine Nitrite (Auto) Negative 11/27/24 15:15 Urine Bilirubin (Auto) 0 mg/dL 11/27/24 15:15 Urine Urobilinogen (Auto) 3.5 mg/dL 11/27/24 15:15 Leukocyte Esterase (Auto) 0 Jada/uL 11/27/24 15:15 Assessment & Plan Assessment & Plan (1) Elevated PSA: Code(s): R97.20 - Elevated prostate specific antigen [PSA] Category: Medical (2) Hypogonadism in male: Code(s): E29.1 - Testicular hypofunction Category: Medical (3) Acute prostatitis: Code(s): N41.0 - Acute prostatitis Category: Medical Plan In office urinalysis results reviewed with the patient today; as noted above. We discussed at length potential causes of elevated PSA as well as borderline hypogonadism. We discussed further treatment options and risks and benefits of these treatment options. Start Cipro as discussed and prescribed. We discussed redraw of 4-6 weeks status post completion of antibiotic therapy. We discussed obtaining retroperitoneal ultrasound for further assessment evaluation. Will obtain testosterone free and total for further assessment evaluation. We did discussed at length lifestyle modifications to assist with borderline hypogonadism and importance of these lifestyle modifications for overall health and well-being. He currently denies any bothersome urinary issues. He reports be happy with current voiding parameters. Follow-up in 2-3 months with imaging and labs; or sooner with any issues, concerns, and or questions. Orders: Orders US retroperitoneal comp Today R97.20 - Elevated prostate specific antigen [PSA] AMB Urinalysis Automated Today Z13.9 - Encounter for screening, unspecified PSA,Total (Free>4and<10) Today R97.20 - Elevated prostate specific antigen [PSA] Testosterone, Free/Total 4 Weeks E29.1 - Testicular hypofunction Medications: New ciprofloxacin HCl 500 mg PO Q12H 14 days 28 tabs 0RF C61 - Malignant neoplasm of prostate Patient Instructions: The patient had an opportunity to ask questions regarding the treatment plan. All questions were answered. Physical exam, labs, and imaging were discussed and reviewed in detail. As well as risks, benefits, and discussion of treatment choices. No major barriers to understanding were identified. The patient expressed understanding and agreement with the above treatment plan. The patient was made aware they should contact our office by phone for worsening of their current condition, the appearance of new symptoms, or with any questions or concerns. Compliance is encouraged with any medications and follow up testing that is ordered. It is a privilege to be allowed the opportunity to participate in? your urological care.? Again, if you have any questions or concerns If you have any questions or concerns please do not hesitate to contact me. The office is [phone]. This note is constructed using voice recognition software. While every effort has been made to ensure accuracy patient flow coordinator errors may have been included. Yours sincerely, TESSA Dexter Coding Level of Care Code Est Pt Level 4 (85529) Diagnoses Elevated PSA R97.20 Hypogonadism in male E29.1 Acute prostatitis N41.0
== END 2024-11-27 16:03 | disposition home or self-care (01) ==
LOC: HO.HUSH 15:11
PROVIDERS: PCP Internal Medicine; Visit Provider Nurse Practitioner Family
DX: R97.20 Elevated prostate specific antigen [PSA] (principal); E29.1 Testicular hypofunction; N41.0 Acute prostatitis; Z13.9 Encounter for screening, unspecified
CPT/HCPCS: 99214

== ENCOUNTER → 2024-11-27 15:10 | Outpatient (BNVA) | payer BC, SELFPAY | PROVIDERS: PCP Internal Medicine; Visit Provider Nurse Practitioner Family | DX: R97.20 Elevated prostate specific antigen [PSA] (principal) | CPT/HCPCS: 81003 ==

== ENCOUNTER 2025-02-25 09:42 | Outpatient (REF) | payer BC, SELFPAY ==
--- NOTE | ~2025-02-25 | US_ITS ---
CLINICAL HISTORY: R97.20 - Elevated prostate specific antigen [PSA] US retroperitoneum Comparison: None provided Findings: Right kidney normal size and echotexture, 12.4 cm length. No hydronephrosis, mass or calculus. Normal color flow. Left kidney normal size and echotexture, 12.7 cm in length. No hydronephrosis, mass or calculus. 6 mm simple cortical cyst of the midpole. Normal color flow. Urinary bladder is unremarkable, no calculus, mass or bladder wall thickening. Prevoid volume 738 mL. Postvoid volume 50 mL. Ureteral jets are visualized bilaterally Prostate measures 4.3 cm in transverse dimension, 3.3 cm in AP dimension, inferior portion is obscured by shadowing, length can not be reliably measured. No focal lesion is seen on the available sonographic images. Impression: 1. No acute finding. 2. Subcentimeter left renal cyst. This document has been electronically signed by: Vero Serna MD on 02/25/2025 13:09:24
--- OUTSIDE RECORDS SUMMARY | 2025-02-25 10:50 | XMS_ITS | Patient Health Record ---
Author Organization [facility] Address [address] [place] [address] Care Team Providers Care Student Financial Aid Manager Name Role Phone Donald (RETIRED) Lamont MOSS Primary Care Provider Unavailable Stan Conner Unavailable [phone] Allergies Allergen (clinical drug ingredient) Drug/Non Drug Allergy documented on EMR Reaction Allergy Type Onset Date Status Penicillin Unknown Drug Allergy Active Reason For Referral No Information Medications Medication SIG (Take, Route, Fr equency, Duration) Notes Start Date End Date Status Multivitamin & Mineral Active Problems Problem Type SNOMED Code ICD Code Onset Dates Problem Status W/U Status Risk Notes Problem [id number] Heme + stool (R19.5) Active confirmed Plan Of Treatment Future Test Test Name Order Date COLONOSCOPY 08/20/2015 Insurance Providers Payer Name Payer Address Payer Phone Subscriber Number Group Number Insured Name Patient Relationship to Insured Coverage Start Date Coverage End Date [facility] [address] [place], [place] [id number] [phone] [id number] TRINY NUNN Self - patient is the insured Medical (General) History Medical History History ICD Code Denies [place],DM,CVA,Lung disease,renal dise ase Surgical History Surgery Date(Month/Year) Right knee approx. 2003
== END 2025-02-25 09:43 | disposition home or self-care (01) ==
LOC: HO.US 09:42
PROVIDERS: PCP Internal Medicine; Visit Provider Nurse Practitioner Family
DX: R97.20 Elevated prostate specific antigen [PSA] (principal)
CPT/HCPCS: 76770

== ENCOUNTER → 2025-02-25 09:44 | Outpatient (BNV) | payer BC, SELFPAY | PROVIDERS: PCP Internal Medicine; Visit Provider Radiology Diagnostic Radiology | DX: N28.1 Cyst of kidney, acquired (principal) | CPT/HCPCS: 76770 ==

== ENCOUNTER 2025-02-27 13:48 | Outpatient (AMB) | payer BC, SELFPAY ==
--- NOTE | 2025-02-27 14:06 | MHC.PC.OV ---
Vital Signs 02/27/25 14:18 Height 5 ft 9.69 in Weight 237 lb BMI 34.3 BP 127/76 Respiration 16 Pulse 86 Pulse Source Pulse Oximeter Temp 98.1 F Temp Source Temporal Artery Scan Pulse Oximetry (%) 98 Oxygen Delivery Method Room Air Intake Visit Reasons: establish care Airset Caster Required: No Accompanied by: Self / Same As Patient Allergies Penicillins (PENICILLINS) Allergy (Unknown, Verified 02/27/25 17:03) LIP SWELLING AND MARIAN Sulfa (Sulfonamide Antibiotics) (SULFA (SULFONAMIDE ANTIBIOTICS)) Allergy (Unknown, Verified 02/27/25 17:03) LIPS SWELL WITH RASH Medication List - Last Reconciled 02/27/25 by Ashley Rea PA-C amlodipine 10 mg PO DAILY gabapentin 100 mg PO BEDTIME lisinopril 40 mg (2 x 20 mg) PO DAILY 90 days metoprolol succinate ER 100 mg (2 x 50 mg) PO DAILY 90 days tirzepatide (weight loss) (Zepbound) 2.5 mg (0.5 mL) subcut QWEEK 4 weeks Tobacco use date assessed: 02/27/25 Dental Screening Dental Screen Date: 02/27/25 Did you have a dental visit in the last 12 months?: Yes Did you have a dental problem in the last 6 months where you did not have access to dental care?: No Was dental information given to patient?: Patient has dentist HPI establish care HPI Details The patient is a 59-year-old male presenting with management of hypertension, hyperlipidemia, and evaluation of peripheral neuropathy and trigger finger. The patient has a history of essential hypertension, managed with amlodipine 10 mg, lisinopril 40 mg, and metoprolol 100 mg extended release. His blood pressure is well-controlled with this regimen. He has been diagnosed with benign prostatic hyperplasia, for which he was treated with antibiotics due to prostatitis. He underwent an ultrasound for his kidneys and prostate and is scheduled for follow-up blood work. The patient has hyperlipidemia with a total cholesterol of 228 mg/dL and LDL cholesterol of 151 mg/dL. He is considering starting a statin but is concerned about potential side effects such as muscle aches. The patient is prediabetic with a fasting glucose level of 133 mg/dL and an A1c of 5.6%. He has been advised to modify his diet and increase physical activity. He has lost 25 pounds over the past three months with the help of semaglutide and dietary changes. He is seeking a prescription for semaglutide to continue his weight loss journey. The patient reports numbness in his left foot, which has improved with weight loss. He has a history of herniated and bulging discs in the lower back, which may contribute to his symptoms. He also reports trigger finger in both hands, with the left being more severe. He has not had any imaging for this condition recently. 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 - Weight Management: Lost 25 pounds over the past three months with semaglutide and dietary changes. - Nutritional Intake: Consumes a diet including scrambled eggs with cheese, minimal lunch, and has reduced intake of fried, fatty, and sugary foods. REPLACED BY [facility] Medical History (Updated 02/27/25 @ 17:07 by Ashley Rea PA-C) History of BPH Pre-diabetes Chronic back pain Trigger finger, right ring finger Trigger finger, left ring finger Right knee pain Low HDL (under 40) Neuropathy Hypertriglyceridemia Hyperlipidemia LDL goal <100 Hypercholesteremia Class 1 obesity with body mass index (BMI) of 34.0 to 34.9 in adult Hypertension Family History Father Heart attack BP (high blood pressure) Mother Heart problem Social History Housing: House Alcohol intake: current Alcohol intake frequency: a few times a week Alcohol type: beer Patient Tobacco Use Status: Never used Tobacco service: No Current occupational status: employed Cognitive needs: No Hearing needs: No Vision needs: Yes (reading glasses) Questionnaire PHQ-9 Over the last 2 weeks, how often have you been bothered by any of the following problems? 1. Little interest or pleasure in doing things: not at all 2. Feeling down, depressed, or hopeless: not at all 3. Trouble falling or staying asleep, or sleeping too much: not at all 4. Feeling tired or having little energy: not at all 5. Poor appetite or overeating: not at all 6. Feeling bad about yourself - or that you are a failure or have let yourself or your family down: not at all 7. Trouble concentrating on things, such as reading the newspaper or watching television: not at all 8. Moving or speaking so slowly that other people could have noticed. Or the opposite - being so fidgety or restless that you have been moving around a lot more than usual: not at all 9. Thoughts that you would be better off or of hurting yourself in some way: not at all Total score: 0 Depression Screening Interpretation: Negative Depression Screening Done: Yes 43860 - PHQ-9 Billing: Yes Source: Developed by Drs. Stan Mcgovern, Lissa Escamilla, Jovan Lua and colleagues, with an educational pooja from [employer]. Thrive Questionnaire Date Thrive assessed: 02/27/25 I am a: Patient What is your living situation today?: I have a steady place to live Within the past 12 months, did the food you bought not last and you didn't have the money to get more?: Never true Within the past 12 months, did you worry whether your food would run out before you got money to buy more?: Never true Do you have trouble paying for medicines?: No Do you have trouble getting transportation to medical appointments?: No Do you have trouble paying your heating and electricity bill?: No Do you have trouble taking care of your child, family member or friend?: No Do you have trouble with day-to-day activities such as bathing, preparing meals, shopping, managing finances, etc.?: No Are you currently unemployed and looking for a job?: No Are you interested in more education?: No Please select the resources that you would like help with: None THRIVE Score: 0 AUDIT C Alcohol Use Questionnaire (AUDIT-C) 1. How often do you have a drink containing alcohol?: 2-3 times a week 2. How many drinks containing alcohol do you have on a typical day when you are drinking?: 1 or 2 3. How often do you have six or more drinks on one occasion?: Never Total Score: 3 Score Reviewed/Action Taken: No MICHELL-7 AMB Questionnaire MICHELL-7 Date MICHELL - 7 assessed: 02/27/25 Feeling nervous, anxious, or on edge: 0 = Not at all Not being able to stop or control worryin = Not at all Worrying too much about different things: 0 = Not at all Trouble relaxin = Not at all Being so restless that it is hard to sit still: 0 = Not at all Becoming easily annoyed or irritable: 0 = Not at all Feeling afraid as if something awful might happen: 0 = Not at all Total MICHELL-7 score (0-4 normal; 5-9 mild; 10-14 moderate; 15-21 severe): 0 Source: Developed by Drs. Stan Mcgovern, Lissa Escamilla, Jovan Lua and colleagues, with an educational pooja from [employer]. MICHELL-7 Assessment Billing MICHELL-7 Assessment Tool: MICHELL-7 Assessment 94828 Review of Systems Const Details: - Cardiovascular: Denies chest pain or leg swelling. - Gastrointestinal: Denies black or bloody stools. - Neurological: Reports numbness in the left foot, denies headaches or dizziness. All systems reviewed & are unremarkable except as noted in HPI and below Physical exam (Primary Care) Vital Signs: Last Vital Signs Temp 98.1 F 02/27/25 14:18 Pulse 86 02/27/25 14:18 Resp 16 02/27/25 14:18 BP 127/76 02/27/25 14:18 Pulse Ox 98 02/27/25 14:18 Oxygen Delivery Method Room Air 02/27/25 14:18 Care Plan Goal for BP management: <140/90 at Goal BMI result Body Mass Index 34.3 BMI Assessment/Plan discussion: High BMI High, discussed plan: lifestyle, weight reduction, dietary, physical activity, alcohol moderation and other Tobacco/Smoking Status: Tobacco use Status Tobacco use date assessed 02/27/25 02/27/25 14:13 Patient Tobacco Use Status Never used Tobacco 02/27/25 14:23 PHQ-9: PHQ-9 Score PHQ-9: Total score 0 02/27/25 15:09 Depression Screening Interpretation: Negative Thrive Assessment: Date of Thrive Assessment Date Thrive assessed 02/27/25 02/27/25 14:13 Const Other: Appearance: Alert. Oriented X3. No acute distress. Head: Normal external exam. Normocephalic. Atraumatic. Eyes: Pupils are equal, round, and reactive to light. Extraocular movements intact. Conjunctiva and sclera normal. Eyelids normal. Ears: External auditory canal normal. Tympanic membranes normal. Throat: Pharynx normal. Uvula midline. Moist mucous membranes. Neck: Normal inspection. Neck supple. Full range of motion. No adenopathy. Thyroid Normal. No meningeal signs. No neck mass noted. Cardiovascular: Normal heart rate and rhythm. Heart sound normal. No murmurs noted. Pulses normal throughout. Respiratory: No respiratory distress. Painless inspiration. Breath sounds normal. No wheezes/rales/rhonchi noted. Chest nontender. No accessory muscle usage noted or decreased air movement noted. Abdomen: Soft and nontender. Bowel sounds normal in all 4 quadrants. No distention noted. No organomegaly noted. No visible injury noted. Back: No costovertebral angle tenderness. Full range of motion noted. Skin: Skin warm and dry. Normal skin color. Normal skin turgor. No rashes/lesions/lacerations noted. Extremities: No lower extremity edema. Extremities exhibit normal range of motion. Extremities nontender. Right knee pain noted, with history of bursa surgery. Numbness in both feet, particularly the balls of the feet. Neuro: Oriented X 3. No motor deficit. No sensory deficit. Reflexes normal. Left foot numbness noted. Trigger finger noted in left and right ring fingers. Results AMB Hemoglobin A1c AMB Hemoglobin A1c 5.6 % Last Edit by SHAINA Melgar on 02/27/25 15:10 Results Reviewed Results Reviewed: Laboratory Last Values Hgb A1c (Clinic) 5.6 % (4.0-6.0) 02/27/25 14:46 - Labs: Fasting glucose 133 mg/dL, A1c 5.6%. - Imaging: Ultrasound of kidneys and prostate performed. Coding Level of Care Code Est Pt Level 4 (12373) Complex EM visit Add On G2211 Diagnoses Hypertension I10 History of BPH Z87.438 Hyperlipidemia LDL goal <100 E78.5 Pre-diabetes R73.03 Class 1 obesity with body mass index (BMI) of 34.0 to 34.9 in adult E66.811; Z68.34 Neuropathy G62.9 Trigger finger, left ring finger M65.342 Trigger finger, right ring finger M65.341 Additional Codes PHQ-9 - 78686 - PHQ-9 Billing: Yes ([id number]) MICHELL-7 Assessment Billing - MICHELL-7 Assessment Tool: MICHELL-7 Assessment 75956 ([id number]) Time Spent (min) 50 Assessment & Plan Assessment & Plan (1) Hypertension: Code(s): I10 - Essential (primary) hypertension Category: Medical Plan: The patient's essential hypertension is currently well-controlled with amlodipine, lisinopril, and metoprolol. No changes to the current medication regimen are necessary at this time. (2) History of BPH: Code(s): Z87.438 - Personal history of other diseases of male genital organs Category: Medical Plan: The patient has been treated for prostatitis with antibiotics and has undergone an ultrasound for further evaluation. Follow-up blood work is scheduled to monitor prostate-specific antigen levels. (3) Hyperlipidemia LDL goal <100: Code(s): E78.5 - Hyperlipidemia, unspecified Category: Medical Plan: The patient is considering starting a statin for hyperlipidemia but is concerned about potential side effects. Dietary modifications and increased physical activity have been recommended to manage cholesterol levels. (4) Pre-diabetes: Code(s): R73.03 - Prediabetes Category: Medical Plan: The patient is prediabetic with a fasting glucose of 133 mg/dL and an A1c of 5.6%. Dietary changes and increased physical activity have been advised to prevent progression to diabetes. (5) Class 1 obesity with body mass index (BMI) of 34.0 to 34.9 in adult: Code(s): E66.811 - Obesity, class 1; Z68.34 - Body mass index [BMI] 34.0-34.9, adult Category: Medical Plan: The patient has lost 25 pounds with the aid of semaglutide and dietary changes. A prescription for semaglutide is being considered to continue weight management. (6) Neuropathy: Code(s): G62.9 - Polyneuropathy, unspecified Category: Medical Plan: The patient reports numbness in the left foot, which may be related to a history of herniated and bulging discs. Referral to a motel manager is planned for further evaluation. (7) Trigger finger, left ring finger: Code(s): M65.342 - Trigger finger, left ring finger Category: Medical Plan: The patient reports trigger finger in both hands, with the left being more severe. Referral to orthopedics is planned for further evaluation and management. (8) Trigger finger, right ring finger: Code(s): M65.341 - Trigger finger, right ring finger Category: Medical Plan: The patient reports trigger finger in both hands, with the left being more severe. Referral to orthopedics is planned for further evaluation and management. Plan Plan Patient was informed and verbally consented to the use of an ambient scribe for clinic note documentation during this visit. 1. Essential Hypertension The patient's essential hypertension is currently well-controlled with amlodipine, lisinopril, and metoprolol. No changes to the current medication regimen are necessary at this time. 2. Benign Prostatic Hyperplasia The patient has been treated for prostatitis with antibiotics and has undergone an ultrasound for further evaluation. Follow-up blood work is scheduled to monitor prostate-specific antigen levels. 3. Hyperlipidemia The patient is considering starting a statin for hyperlipidemia but is concerned about potential side effects. Dietary modifications and increased physical activity have been recommended to manage cholesterol levels. 4. Prediabetes The patient is prediabetic with a fasting glucose of 133 mg/dL and an A1c of 5.6%. Dietary changes and increased physical activity have been advised to prevent progression to diabetes. 5. Obesity The patient has lost 25 pounds with the aid of semaglutide and dietary changes. A prescription for semaglutide is being considered to continue weight management. 6. Peripheral Neuropathy The patient reports numbness in the left foot, which may be related to a history of herniated and bulging discs. Referral to a motel manager is planned for further evaluation. 7. Trigger Finger The patient reports trigger finger in both hands, with the left being more severe. Referral to orthopedics is planned for further evaluation and management. During the visit, we discussed the management of the patient's hypertension, which is well-controlled with current medications. We reviewed the patient's hyperlipidemia and the potential benefits and side effects of starting a statin. The patient is prediabetic, and we emphasized the importance of dietary changes and physical activity to prevent progression to diabetes. We also discussed the patient's weight loss journey with semaglutide and the possibility of continuing this medication. For the patient's peripheral neuropathy, we plan to refer him to a motel manager for further evaluation. Additionally, we discussed the patient's trigger finger and the plan to refer him to orthopedics for further management. Follow-up appointments and necessary referrals were arranged to ensure comprehensive care. Orders: Orders TSH reflex Free T4 Today Z00.00 - Encounter for general adult medical examination without abnormal findings AMB Hemoglobin A1c Today Z13.9 - Encounter for screening, unspecified Vitamin B12 and Folate Today Z00.00 - Encounter for general adult medical examination without abnormal findings Vitamin D 25-OH Total Today Z00.00 - Encounter for general adult medical examination without abnormal findings Magnesium Today Z00.00 - Encounter for general adult medical examination without abnormal findings Referrals Orthopedics Referral G62.9 - Polyneuropathy, unspecified, G89.29 - Other chronic pain, M25.561 - Pain in right knee, M54.9 - Dorsalgia, unspecified, M65.341 - Trigger finger, right ring finger, M65.342 - Trigger finger, left ring finger Podiatry Referral G62.9 - Polyneuropathy, unspecified, G89.29 - Other chronic pain, M54.9 - Dorsalgia, unspecified, R73.03 - Prediabetes Medications: New gabapentin 100 mg PO BEDTIME 90 caps 3RF tirzepatide (weight loss) (Zepbound) for 4 weeks 2.5 mg (0.5 mL) subcut QWEEK 2 mL 0RF 4 weeks E66.811 - Obesity, class 1, E78.00 - Pure hypercholesterolemia, unspecified, E78.1 - Pure hyperglyceridemia, E78.5 - Hyperlipidemia, unspecified, E78.6 - Lipoprotein deficiency, G62.9 - Polyneuropathy, unspecified, Z68.34 - Body mass index [BMI] 34.0-34.9, adult Changed From lisinopril 40 mg (2 x 20 mg) PO DAILY 90 tabs 3RF To lisinopril 40 mg (2 x 20 mg) PO DAILY 180 tabs 3RF 90 days From metoprolol succinate ER 100 mg (2 x 50 mg) PO DAILY 90 tabs 3RF To metoprolol succinate ER 100 mg (2 x 50 mg) PO DAILY 180 tabs 3RF 90 days Patient Instructions: - Continue taking your blood pressure medications as prescribed. - Follow a heart-healthy diet and increase physical activity to manage cholesterol and blood sugar levels. - Schedule follow-up appointments with the motel manager and orthopedist as referred. - Monitor for any new or worsening symptoms and report them to your healthcare provider. - Consider starting a statin if recommended by your healthcare provider. - Continue with weight management efforts and discuss semaglutide prescription with your provider.
[2025-02-27 14:18] VITALS: BP 127/76; PULSE 86; RESP 16; TEMP 36.7; O2SAT 98; BMI 34.3
--- OUTSIDE RECORDS SUMMARY | 2025-02-27 15:05 | XMS_ITS | Patient Health Record ---
Author Organization [facility] Address [address] [place] [address] Care Team Providers Care Construction Safety Manager Name Role Phone Donald (RETIRED) Lamont MOSS Primary Care Provider Unavailable Stan Conner Unavailable [phone] Allergies Allergen (clinical drug ingredient) Drug/Non Drug Allergy documented on EMR Reaction Allergy Type Onset Date Status Penicillin Unknown Drug Allergy Active Reason For Referral No Information Medications Medication SIG (Take, Route, Fr equency, Duration) Notes Start Date End Date Status Multivitamin & Mineral Active Problems Problem Type SNOMED Code ICD Code Onset Dates Problem Status W/U Status Risk Notes Problem [id number] Heme + stool (R19.5) Active confirmed Plan Of Treatment Future Test Test Name Order Date COLONOSCOPY 08/20/2015 Insurance Providers Payer Name Payer Address Payer Phone Subscriber Number Group Number Insured Name Patient Relationship to Insured Coverage Start Date Coverage End Date [facility] [address] [place], [place] [id number] [phone] [id number] TRINY NUNN Self - patient is the insured Medical (General) History Medical History History ICD Code Denies [place],DM,CVA,Lung disease,renal dise ase Surgical History Surgery Date(Month/Year) Right knee approx. 2003
== END 2025-02-27 15:05 | disposition home or self-care (01) ==
LOC: HO.HMCSH 13:48
PROVIDERS: PCP Internal Medicine; Visit Provider Physician Assistant Medical
DX: I10 Essential (primary) hypertension (principal); Z87.438 Personal history of other diseases of male genital organs; E78.5 Hyperlipidemia, unspecified; R73.03 Prediabetes; E66.811 Obesity, class 1; Z68.34 Body mass index [BMI] 34.0-34.9, adult; G62.9 Polyneuropathy, unspecified; M65.342 Trigger finger, left ring finger; M65.341 Trigger finger, right ring finger; Z13.9 Encounter for screening, unspecified

== ENCOUNTER → 2025-02-27 13:48 | Outpatient (BNVA) | payer BC, SELFPAY | PROVIDERS: PCP Internal Medicine; Visit Provider Physician Assistant Medical | DX: I10 Essential (primary) hypertension (principal); G62.9 Polyneuropathy, unspecified; N40.0 Benign prostatic hyperplasia without lower urinary tract symptoms; R73.03 Prediabetes; E66.811 Obesity, class 1; M65.342 Trigger finger, left ring finger; M65.341 Trigger finger, right ring finger; E78.00 Pure hypercholesterolemia, unspecified; E78.1 Pure hyperglyceridemia; Z68.34 Body mass index [BMI] 34.0-34.9, adult; Z87.438 Personal history of other diseases of male genital organs | CPT/HCPCS: 83036; 96127 ==

== ENCOUNTER 2025-03-03 07:21 | Outpatient (REF) | payer BC, SELFPAY ==
--- OUTSIDE RECORDS SUMMARY | 2025-03-03 07:25 | XMS_ITS | Patient Health Record ---
Author Organization [facility] Address [address] [place] [address] Care Team Providers Care In Process Inspector Name Role Phone Donald (RETIRED) Lamont MOSS Primary Care Provider Unavailable Stan Conner Unavailable [phone] Allergies Allergen (clinical drug ingredient) Drug/Non Drug Allergy documented on EMR Reaction Allergy Type Onset Date Status Penicillin Unknown Drug Allergy Active Reason For Referral No Information Medications Medication SIG (Take, Route, Fr equency, Duration) Notes Start Date End Date Status Multivitamin & Mineral Active Problems Problem Type SNOMED Code ICD Code Onset Dates Problem Status W/U Status Risk Notes Problem [id number] Heme + stool (R19.5) Active confirmed Plan Of Treatment Future Test Test Name Order Date COLONOSCOPY 08/20/2015 Insurance Providers Payer Name Payer Address Payer Phone Subscriber Number Group Number Insured Name Patient Relationship to Insured Coverage Start Date Coverage End Date [facility] [address] [place], [place] [id number] [phone] [id number] TRINY NUNN Self - patient is the insured Medical (General) History Medical History History ICD Code Denies [place],DM,CVA,Lung disease,renal dise ase Surgical History Surgery Date(Month/Year) Right knee approx. 2003
[2025-03-03 14:52] LABS: Folate 8.5 ng/mL (> or = 4.0); Vitamin B12 333 pg/mL (200-900)
[2025-03-03 14:55] LABS: PSA,Total (Free>4and<10) 6.96 ng/mL (0.00-4.00)
[2025-03-03 14:59] LABS: Magnesium 2.0 mg/dL (1.6-2.6)
[2025-03-04 11:59] LABS: Free Prostate Spec Ag 1.0 ng/mL; Percent Free Prostate Spec Ag 17 % (calc) (>25)
[2025-03-08 14:09] LABS: Testosterone, Free 48.0 pg/mL (35.0-155.0)
== END 2025-03-03 07:22 | disposition home or self-care (01) ==
LOC: HO.HMGCLDS 07:21
PROVIDERS: PCP Internal Medicine; Referring Provider Nurse Practitioner Family; Visit Provider Physician Assistant Medical
DX: Z00.00 Encounter for general adult medical examination without abnormal findings (principal); R97.20 Elevated prostate specific antigen [PSA]; E29.1 Testicular hypofunction; Z12.5 Encounter for screening for malignant neoplasm of prostate; Z13.21 Encounter for screening for nutritional disorder
CPT/HCPCS: 36415; 82306; 82607; 82746; 83735; 84153; 84154; 84402; 84403; 84443

== ENCOUNTER 2025-03-11 07:48 | Outpatient (AMB) | payer BC, SELFPAY ==
[2025-03-11 07:51] VITALS: BMI 34.1
--- NOTE | 2025-03-11 07:51 | A.OFFVIS_ITS ---
Vital Signs 03/11/25 07:51 Height 5 ft 10 in Weight 238 lb BMI 34.1 Intake Visit Reasons: Polyneuropathy Intake Note: Leo is a 59 year old male who presents to the office today as a new patient visit referred by his PCP Ashley Rea for Polyneuropathy. Pt reports numbness bilateral numbness in his feet, which may be related to a history of herniated and bulging discs. Patient reports bilateral pain in the plantar aspect of his foot. Allergies Penicillins (PENICILLINS) Allergy (Unknown, Verified 03/11/25 07:52) LIP SWELLING AND MARIAN Sulfa (Sulfonamide Antibiotics) (SULFA (SULFONAMIDE ANTIBIOTICS)) Allergy (Unknown, Verified 03/11/25 07:52) LIPS SWELL WITH RASH Medication List - Last Reconciled 03/11/25 by Wolfgang Collins DPM amlodipine 10 mg PO DAILY capsaicin 0.1% (Capsaicin HP) 1 appl topical BID gabapentin 100 mg PO BEDTIME lisinopril 40 mg (2 x 20 mg) PO DAILY 90 days metoprolol succinate ER 100 mg (2 x 50 mg) PO DAILY 90 days tirzepatide (weight loss) (Zepbound) 2.5 mg (0.5 mL) subcut QWEEK 4 weeks HPI HPI Polyneuropathy: Details: The patient is a 59-year-old male with past medical history of hypertension presents with bilateral foot pain and numbness. The pain began approximately 20 years ago and is associated with a history of a herniated disc at L4, L5, and S1. The patient endorses sciatica symptoms bilaterally, with variability in severity depending on activity and position. The patient has not undergone surgery for the herniated disc due to concerns about potential outcomes. The patient reports numbness and tingling in the feet, primarily affecting the toes and arches, with occasional throbbing throughout the day. He denies burning sensations but notes that the numbness can feel ?spongy? or ?balloon-like? at times. 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 He has tried gabapentin 100 mg once a day intermittently without significant relief and prefers to avoid regular medication use. Patient denies any motor weakness to his lower extremities. Denies difficulty walking due to these symptoms. [facility] Medical History (Updated 03/11/25 @ 08:20 by Wolfgang Collins DPM) History of BPH Pre-diabetes Chronic back pain Trigger finger, right ring finger Trigger finger, left ring finger Right knee pain Low HDL (under 40) Neuropathy Hypertriglyceridemia Hyperlipidemia LDL goal <100 Hypercholesteremia Class 1 obesity with body mass index (BMI) of 34.0 to 34.9 in adult Hypertension Family History Father Heart attack BP (high blood pressure) Mother Heart problem Social History Housing: House Alcohol intake: current Alcohol intake frequency: a few times a week Alcohol type: beer Patient Tobacco Use Status: Never used Tobacco service: No Current occupational status: employed Cognitive needs: No Hearing needs: No Vision needs: Yes (reading glasses) Review of Systems Const All systems reviewed & are unremarkable except as noted in HPI and below Physical Exam Vital Signs: BMI result Body Mass Index 34.1 Extrem Other: *Bilateral Lower Extremity Focused Exam Vascular: DP/PT 2/4, CFT<3s to digits, TG warm to cool, no pedal edema Derm: No ecchymosis, no open wounds or lacerations. No clinical signs of infection. Neuro: 10/10 monofilament test bilateral feet. Decreased sensation along the sural nerve saphenous nerve distribution to the right foot. To the left foot, reports abnormal sensation to the dermatomes of the sural nerve, saphenous nerve, deep peroneal nerve. MSK: No pain on palpation of bilateral lower extremities. All joints range of motion within normal limits and unrestricted. 5/5 muscle strength bilaterally. Results Reviewed Results Reviewed: Laboratory Tests 02/27/25 03/03/25 14:46 07:40 Hgb A1c (Clinic) 5.6 Vitamin B12 333 25-OH Vitamin D Total 38.2 Folate 8.5 Assessment & Plan Assessment & Plan (1) Neuropathy: Code(s): G62.9 - Polyneuropathy, unspecified Category: Medical Plan: * Discussed differential diagnosis for his bilateral lower extremity neuropathy symptoms including idiopathic peripheral neuropathy, vitamin-B deficiency, and lumbar radiculopathy. At this time, lumbar radiculopathy appears to be the most likely etiology. * Rx EMG NCV. Patient will likely require referral to neurology pending results. * Rx topical capsaicin ointment. Explained to the patient that the ointment may not treat his symptoms given his symptoms currently are isolated to just numbness and etiology may be due to his spine. * Discussed vitamin-B complex and alpha lipoic acid [id number] supplementation. * Follow up in 1 month to discuss results. (2) Lumbar back pain with radiculopathy affecting lower extremity: Code(s): M54.16 - Radiculopathy, lumbar region Category: Medical Plan: * Rx lumbar spine x-ray * Rx MRI lumbar spine * We will refer to neuro/spine after MRI is complete. Orders: Orders NE nerve conduction velocity Today G62.9 - Polyneuropathy, unspecified, M54.16 - Radiculopathy, lumbar region XR lumbar spine 1V Today G62.9 - Polyneuropathy, unspecified, M54.16 - Radiculopathy, lumbar region MR lumbar spine wo con Today M54.16 - Radiculopathy, lumbar region NE electromyogram (EMG) Today G62.9 - Polyneuropathy, unspecified, M54.16 - Radiculopathy, lumbar region Medications: New 2 capsaicin 0.1% (Capsaicin HP) do not wash area for at least 30 min after application 1 appl topical BID 42.5 grams 3RF M54.16 - Radiculopathy, lumbar region Coding Level of Care Code New Pt Level 3 (89592) Diagnoses Neuropathy G62.9 Lumbar back pain with radiculopathy affecting lower extremity M54.16 Time Spent (min) 30
--- OUTSIDE RECORDS SUMMARY | 2025-03-11 07:51 | XMS_ITS | Patient Health Record ---
Author Organization [facility] Address [address] [place] [address] Care Team Providers Care Phytopathology Teacher Name Role Phone Donald (RETIRED) Lamont MOSS Primary Care Provider Unavailable Stan Conner Unavailable [phone] Allergies Allergen (clinical drug ingredient) Drug/Non Drug Allergy documented on EMR Reaction Allergy Type Onset Date Status Penicillin Unknown Drug Allergy Active Reason For Referral No Information Medications Medication SIG (Take, Route, Fr equency, Duration) Notes Start Date End Date Status Multivitamin & Mineral Active Problems Problem Type SNOMED Code ICD Code Onset Dates Problem Status W/U Status Risk Notes Problem [id number] Heme + stool (R19.5) Active confirmed Plan Of Treatment Future Test Test Name Order Date COLONOSCOPY 08/20/2015 Insurance Providers Payer Name Payer Address Payer Phone Subscriber Number Group Number Insured Name Patient Relationship to Insured Coverage Start Date Coverage End Date [facility] [address] [place], [place] [id number] [phone] [id number] TRINY NUNN Self - patient is the insured Medical (General) History Medical History History ICD Code Denies [place],DM,CVA,Lung disease,renal dise ase Surgical History Surgery Date(Month/Year) Right knee approx. 2003
== END 2025-03-11 08:25 | disposition home or self-care (01) ==
PROVIDERS: PCP Internal Medicine; Visit Provider Student in an Organized Health Care Education/Training Program
DX: G62.9 Polyneuropathy, unspecified (principal); M54.16 Radiculopathy, lumbar region
CPT/HCPCS: 99203

== ENCOUNTER 2025-04-17 08:17 | Outpatient (REF) | payer BC, SELFPAY | END 2025-04-17 08:18 | disposition home or self-care (01) | LOC: HO.HOSX 08:17 | PROVIDERS: Visit Provider Orthopaedic Surgery | DX: Z13.89 Encounter for screening for other disorder (principal) ==

== ENCOUNTER 2025-04-17 12:38 | Outpatient (REF) | payer BC, SELFPAY ==
--- NOTE | 2025-04-17 | EMG_ITS ---
Chief complaint:?G62.9 Polyneuropathy, unspecified, M54.16 Radiculopathy, lumbar region Reason for referral: Low back pain, numbness Referred by:?Wolfgang Collins MD Procedure done: Bilateral lower extremities NCS/EMG Bilateral tibial and peroneal motor studies were performed with F responses. Tibial H reflexes were obtained. Bilateral median and lateral mixed plantars sensory studies were performed. Bilateral superficial peroneal and sural sensory studies were performed and EMG needle examination is performed. Findings: Left peroneal motor responses absent. Right peroneal amplitudes are significantly diminished. Right tibial amplitude or moderately diminished with slow conduction velocity. Sural and median and lateral mixed plantars sensory studies were absent. Superficial peroneal amplitudes were diminished. F responses are somewhat delayed and left peroneal is absent. Long duration motor unit potential with decreased recruitment is noted in limb muscles. Paraspinal muscles did not reveal any significant abnormality. 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 Codin [id number] 2 extremities MTDD
== END 2025-04-17 12:39 | disposition home or self-care (01) ==
LOC: HO.NEURO 12:38
PROVIDERS: PCP Internal Medicine; Visit Provider Student in an Organized Health Care Education/Training Program
DX: M54.16 Radiculopathy, lumbar region (principal); G62.9 Polyneuropathy, unspecified; M54.50 Low back pain, unspecified
CPT/HCPCS: 95886; 95913

== ENCOUNTER → 2025-04-17 13:00 | Outpatient (BNV) | payer BC, SELFPAY | PROVIDERS: PCP Internal Medicine; Visit Provider Psychiatry & Neurology Neurology | DX: G62.89 Other specified polyneuropathies (principal) | CPT/HCPCS: 95886; 95913 ==

== ENCOUNTER 2025-04-24 12:57 | Outpatient (AMB) | payer BC, SELFPAY ==
--- NOTE | 2025-04-24 13:02 | MHC.OFFVIS ---
Intake Visit Reasons: 3M/US/labs Intake Note: Patient is present for 3M/US/LABS Urology Medication:NONE Antibiotic Allergy:PENICILLINS,SULFA Blood Thinner:NONE Panel Monitor Required: No Allergies Penicillins (PENICILLINS) Allergy (Unknown, Verified 04/24/25 13:04) LIP SWELLING AND MARIAN Sulfa (Sulfonamide Antibiotics) (SULFA (SULFONAMIDE ANTIBIOTICS)) Allergy (Unknown, Verified 04/24/25 13:04) LIPS SWELL WITH RASH HPI Comments Details: Leo is a very pleasant 59 year-old male patient of Dr. Rea. He has a past medical history of hypertension prediabetes, neuropathy, hyperlipidemia, and obesity..He presents to the office today for follow-up of his borderline low testosterone as well as elevated PSA. In discussion with the patient today he reports having completed Cipro as prescribed during last office visit for presumed prostatitis given patient's mildly elevated PSA and YESSI noting left-sided of the prostate was boggy. Recent PSA results and retroperitoneal ultrasound results reviewed with the patient today as noted and trended below. 03/20 bilateral kidneys are normal in size and echotexture. Prostate measures approximately 24 mL. No focal lesions noted. Subcentimeter left renal cyst otherwise no acute findings noted on imaging per radiology report. Labs are as follows: PSA 02/15 3.7, 10/18 4.1, 03/20 6.8 % free PSA 17% Testosterone levels 12/16 141, 02/15 278 free testosterone 38.9, 03/20 264 We discussed at length potential causes of elevated PSA as well as borderline hypogonadism. When asked he denies any bothersome urinary issues. He denies urinary urgency, urinary frequency, incontinence, nocturia, hematuria, dysuria, foul smelling urine, changes to urinary stream, flank pain, fever, and or chills. Discussed importance of adequate sleep, healthy eating habits, and weight management for improvement in hypogonadism as well as overall health and well-being. In office urinalysis results reviewed with the patient today. All questions were answered. He otherwise offers no other issues or concerns at this time. [facility] Medical History History of BPH Pre-diabetes Chronic back pain Trigger finger, right ring finger Trigger finger, left ring finger Right knee pain Low HDL (under 40) Neuropathy Hypertriglyceridemia Hyperlipidemia LDL goal <100 Hypercholesteremia Class 1 obesity with body mass index (BMI) of 34.0 to 34.9 in adult Hypertension Family History Father Heart attack BP (high blood pressure) Mother Heart problem Social History Housing: House Alcohol intake: current Alcohol intake frequency: a few times a week Alcohol type: beer Patient Tobacco Use Status: Never used Tobacco service: No Current occupational status: employed Cognitive needs: No Hearing needs: No Vision needs: Yes (reading glasses) Review of Systems Const All systems reviewed & are unremarkable except as noted in HPI and below Physical Exam Const General: cooperative, healthy appearing, comfortable, no acute distress, well developed, alert and awake Nutritional Appearance: overweight Orientation/consciousness: patient oriented x3 Limitations: no limitations HEENT Head: Yes normal to inspection, Yes normocephalic and Yes atraumatic Ears: hearing grossly normal bilaterally Eyes General: appearance normal, both eyes and all related structures Neck Neck: Yes normal visual inspection and Yes trachea midline Chest Chest palpation & inspection: normal inspection of the chest Resp Effort & Inspection: normal respiratory effort and able to speak in complete sentences Cardio Rate: regular rate GI Inspection: Yes normal to inspection General: Yes no CVA tenderness Back/Spine/Pelvis Back: no CVA tenderness Skin General skin exam: no rashes or lesions noted Neuro General: patient oriented x3 Extrem General: Yes normal to inspection Psych Appearance: grossly normal and well kempt Mental Status: mental status grossly normal Speech and movement: Normal speech and movement present and Clear speech present Affect: normal affect Attitude: cooperative Thought process: Normal thought process present Thought content: Normal thought content present Insight: Fair insight present (Psych) Judgement: Fair judgement present (Psych) Results AMB Urinalysis, Automated UA Leukoctes 0 Jada/uL Last Edit by TEAGAN Ceballos on 04/24/25 13:28 UA Nitrite Negative Last Edit by TEAGAN Ceballos on 04/24/25 13:28 UA Urobilinogen 0.2 mg/dL Last Edit by TEAGAN Ceballos on 04/24/25 13:28 UA Protein 0 mg/dL Last Edit by TEAGAN Ceballos on 04/24/25 13:28 UA pH 6.0 Last Edit by TEAGAN Ceballos on 04/24/25 13:28 UA Blood 0 Baljit/uL Last Edit by TEAGAN Ceballos on 04/24/25 13:28 UA Specific [place] 1.015 Last Edit by TEAGAN Ceballos on 04/24/25 13:28 UA Ketone Negative Last Edit by TEAGAN Ceballos on 04/24/25 13:28 UA Bilirubin 0 mg/dL Last Edit by TEAGAN Ceballos on 04/24/25 13:28 UA Glucose 0 mg/dL Last Edit by TEAGAN Ceballos on 04/24/25 13:28 Results Reviewed Results Reviewed: Date of Service: 02/25/25 Procedure(s): US retroperitoneal comp Findings: Right kidney normal size and echotexture, 12.4 cm length. No hydronephrosis, mass or calculus. Normal color flow. Left kidney normal size and echotexture, 12.7 cm in length. No hydronephrosis, mass or calculus. 6 mm simple cortical cyst of the midpole. Normal color flow. Urinary bladder is unremarkable, no calculus, mass or bladder wall thickening. Prevoid volume 738 mL. Postvoid volume 50 mL. Ureteral jets are visualized bilaterally Prostate measures 4.3 cm in transverse dimension, 3.3 cm in AP dimension, inferior portion is obscured by shadowing, length can not be reliably measured. No focal lesion is seen on the available sonographic images. Impression: 1. No acute finding. 2. Subcentimeter left renal cyst. Assessment & Plan Assessment & Plan (1) Hypogonadism in male: Code(s): E29.1 - Testicular hypofunction Category: Medical (2) Elevated PSA: Code(s): R97.20 - Elevated prostate specific antigen [PSA] Category: Medical (3) Renal cyst: Code(s): N28.1 - Cyst of kidney, acquired Category: Medical Plan: Plan Risks and benefits regarding trans rectal ultrasound with prostate biopsy were discussed.? Options of continued surveillance, no treatment and biopsy were offered. The risks include but are not limited to, urinary tract infection, sepsis, difficulty urinating, bleeding into the rectum or bladder that requires intervention and transfusion,and failure to diagnose prostate cancer. The patient understands the options and the risks involved. They wish to proceed. Printed information was provided to ensure he remains off anticoagulation for the appropriate length of time. He may require cardiology or PCP clearance.? An antibiotic will be administered prior to, and following the procedure Plan In office urinalysis results reviewed with the patient today; as noted above. Recent PSA and testosterone results reviewed with the patient today; as noted above. Recent retroperitoneal ultrasound results reviewed with the patient today; as noted above. He currently denies any bothersome urinary issues or concerns. He reports be happy with current voiding parameters. We did discuss increase in PSA and further treatment options we discussed risks and benefits of these treatment options. All questions were answered. We also discussed lifestyle modifications to assist with hypogonadism as well as further treatment options and risks and benefits of these treatment options. Prescription provided for antibiotic therapy prior to prostate procedure; we did discuss specific instructions. Will schedule for prostate biopsy as discussed Follow-up per doctor's orders; or sooner with any issues, concerns, and or questions. Orders: Orders AMB Urinalysis Automated Today Z13.9 - Encounter for screening, unspecified US biopsy prostate Today R97.20 - Elevated prostate specific antigen [PSA] Medications: New levofloxacin take 1 tablet day before procedure, 1 tablet day of procedure and 1 tablet day after procedure 500 mg PO DAILY 3 tabs 0RF 3 days Patient Instructions: The patient had an opportunity to ask questions regarding the treatment plan. All questions were answered. Physical exam, labs, and imaging were discussed and reviewed in detail. As well as risks, benefits, and discussion of treatment choices. No major barriers to understanding were identified. The patient expressed understanding and agreement with the above treatment plan. The patient was made aware they should contact our office by phone for worsening of their current condition, the appearance of new symptoms, or with any questions or concerns. Compliance is encouraged with any medications and follow up testing that is ordered. It is a privilege to be allowed the opportunity to participate in? your urological care.? Again, if you have any questions or concerns If you have any questions or concerns please do not hesitate to contact me. The office is [phone]. This note is constructed using voice recognition software. While every effort has been made to ensure accuracy gas worker errors may have been included. Yours sincerely, Jolynn Johnson, CERTIFIED NURSING ASSISTANT- Coding Level of Care Code Est Pt Level 4 (61254) Diagnoses Hypogonadism in male E29.1 Elevated PSA R97.20 Renal cyst N28.1
--- OUTSIDE RECORDS SUMMARY | 2025-04-24 15:51 | XMS_ITS | Patient Health Record ---
Author Organization [facility] Address [address] [place] [address] Care Team Providers Care Road Equipment Operator Name Role Phone Donald (RETIRED) Lamont MOSS Primary Care Provider Unavailable Stan Conner Unavailable [phone] Allergies Allergen (clinical drug ingredient) Drug/Non Drug Allergy documented on EMR Reaction Allergy Type Onset Date Status Penicillin Unknown Drug Allergy Active Reason For Referral No Information Medications Medication SIG (Take, Route, Fr equency, Duration) Notes Start Date End Date Status Multivitamin & Mineral Active Problems Problem Type SNOMED Code ICD Code Onset Dates Problem Status W/U Status Risk Notes Problem Abnormal feces ([id number]) Heme + stool (R19.5) Active confirmed Plan Of Treatment Future Test Test Name Order Date COLONOSCOPY 08/20/2015 Insurance Providers Payer Name Payer Address Payer Phone Subscriber Number Group Number Insured Name Patient Relationship to Insured Coverage Start Date Coverage End Date [facility] [address] [place], [place] [id number] TRINY NUNN Self - patient is the insured Medical (General) History Medical History History ICD Code Denies [place],DM,CVA,Lung disease,renal dise ase Surgical History Surgery Date(Month/Year) Right knee approx. 2003
== END 2025-04-24 13:54 | disposition home or self-care (01) ==
LOC: HO.HUSH 12:58
PROVIDERS: PCP Internal Medicine; Visit Provider Nurse Practitioner Family
DX: E29.1 Testicular hypofunction (principal); R97.20 Elevated prostate specific antigen [PSA]; N28.1 Cyst of kidney, acquired; Z13.9 Encounter for screening, unspecified
CPT/HCPCS: 99214

== ENCOUNTER → 2025-04-24 12:57 | Outpatient (BNVA) | payer BC, SELFPAY | PROVIDERS: PCP Internal Medicine; Visit Provider Nurse Practitioner Family | DX: E29.1 Testicular hypofunction (principal); R97.20 Elevated prostate specific antigen [PSA]; N28.1 Cyst of kidney, acquired | CPT/HCPCS: 81003 ==

== ENCOUNTER 2025-05-07 07:53 | Outpatient (AMB) | payer BC, SELFPAY ==
--- OUTSIDE RECORDS SUMMARY | 2025-05-07 07:56 | XMS_ITS | Patient Health Record ---
Author Organization [facility] Address [address] [place] [address] Care Team Providers Care Telephone Exchange Operator Name Role Phone Donald (RETIRED) Lamont MOSS Primary Care Provider Unavailable Stan Conner Unavailable [phone] Allergies Allergen (clinical drug ingredient) Drug/Non Drug Allergy documented on EMR Reaction Allergy Type Onset Date Status Penicillin Unknown Drug Allergy Active Reason For Referral No Information Medications Medication SIG (Take, Route, Fr equency, Duration) Notes Start Date End Date Status Multivitamin & Mineral Active Problems Problem Type SNOMED Code ICD Code Onset Dates Problem Status W/U Status Risk Notes Problem Abnormal feces (856094043) Heme + stool (R19.5) Active confirmed Plan Of Treatment Future Test Test Name Order Date COLONOSCOPY 08/20/2015 Insurance Providers Payer Name Payer Address Payer Phone Subscriber Number Group Number Insured Name Patient Relationship to Insured Coverage Start Date Coverage End Date [facility] [address] [place], [place] [id number] TRINY NUNN Self - patient is the insured Medical (General) History Medical History History ICD Code Denies [place],DM,CVA,Lung disease,renal dise ase Surgical History Surgery Date(Month/Year) Right knee approx. 2003
[2025-05-07 08:06] VITALS: BMI 34.1
--- NOTE | 2025-05-07 08:06 | A.OFFVIS_ITS ---
Vital Signs 05/07/25 08:06 Height 5 ft 10 in Weight 238 lb BMI 34.1 Intake Visit Reasons: Follow Up Polyneuropathy Intake Note: Leo is a 59 year old male who presents today for a follow up on his polyneuropathy. Patient reports everything is going well and he would like to discuss his EMG and nerve conduction study results. He mentions he was called by MRI to schedule but they never scheduled an appointment. Allergies Penicillins (PENICILLINS) Allergy (Unknown, Verified 05/07/25 08:08) LIP SWELLING AND MARIAN Sulfa (Sulfonamide Antibiotics) (SULFA (SULFONAMIDE ANTIBIOTICS)) Allergy (Unknown, Verified 05/07/25 08:08) LIPS SWELL WITH RASH HPI HPI Follow Up Polyneuropathy: Details: The patient is a 59-year-old male with past medical history of hypertension returns for EMG/NCV review for bilateral foot pain and numbness. He was unable to receive his MRI or x-ray. History: The pain began approximately 20 years ago and is associated with a history of a herniated disc at L4, L5, and S1. The patient endorses sciatica symptoms bilaterally, with variability in severity depending on activity and position. The patient has not undergone surgery for the herniated disc due to concerns about potential outcomes. The patient reports numbness and tingling in the feet, primarily affecting the toes and arches, with occasional throbbing throughout the day. He denies burning sensations but notes that the numbness can feel ?spongy? or ?balloon-like? at times. 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 He has tried gabapentin 100 mg once a day intermittently without significant relief and prefers to avoid regular medication use. Patient denies any motor weakness to his lower extremities. Denies difficulty walking due to these symptoms. [facility] Medical History History of BPH Pre-diabetes Chronic back pain Trigger finger, right ring finger Trigger finger, left ring finger Right knee pain Low HDL (under 40) Neuropathy Hypertriglyceridemia Hyperlipidemia LDL goal <100 Hypercholesteremia Class 1 obesity with body mass index (BMI) of 34.0 to 34.9 in adult Hypertension Family History Father Heart attack BP (high blood pressure) Mother Heart problem Social History Housing: House Alcohol intake: current Alcohol intake frequency: a few times a week Alcohol type: beer Patient Tobacco Use Status: Never used Tobacco service: No Current occupational status: employed Cognitive needs: No Hearing needs: No Vision needs: Yes (reading glasses) Review of Systems Const All systems reviewed & are unremarkable except as noted in HPI and below Physical Exam Vital Signs: BMI result Body Mass Index 34.1 Results Reviewed Results Reviewed: Date of Service: 04/17/25 Procedure(s): NE electromyogram (EMG); NE nerve conduction velocity Findings: Left peroneal motor responses absent. Right peroneal amplitudes are significantly diminished. Right tibial amplitude or moderately diminished with slow conduction velocity. Sural and median and lateral mixed plantars sensory studies were absent. Superficial peroneal amplitudes were diminished. F responses are somewhat delayed and left peroneal is absent. Long duration motor unit potential with decreased recruitment is noted in limb muscles. Paraspinal muscles did not reveal any significant abnormality. 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 Assessment & Plan Assessment & Plan (1) Neuropathy: Code(s): G62.9 - Polyneuropathy, unspecified Category: Medical Plan: * Discussed differential diagnosis for his bilateral lower extremity neuropathy symptoms including idiopathic peripheral neuropathy, vitamin-B deficiency, and lumbar radiculopathy. * Reviewed EMG/NCV with the patient. * Referred to Neurology * Discussed vitamin-B complex and alpha lipoic acid [id number] supplementation however not likely to improve his symptoms at this point. (2) Lumbar back pain with radiculopathy affecting lower extremity: Code(s): M54.16 - Radiculopathy, lumbar region Category: Medical Plan: * Pending lumbar spine x-ray, and MRI lumbar spine * Recommended discussing further treatment with Primary (PT referral, etc.) Orders: Referrals Neurology Referral G62.9 - Polyneuropathy, unspecified Coding Level of Care Code Est Pt Level 3 (24583) Diagnoses Neuropathy G62.9 Lumbar back pain with radiculopathy affecting lower extremity M54.16 Time Spent (min) 25
== END 2025-05-07 08:29 | disposition home or self-care (01) ==
LOC: HO.HPODS 07:54
PROVIDERS: PCP Internal Medicine; Visit Provider Student in an Organized Health Care Education/Training Program
DX: G62.9 Polyneuropathy, unspecified (principal); M54.16 Radiculopathy, lumbar region
CPT/HCPCS: 99213

== ENCOUNTER 2025-05-15 07:40 | Outpatient (REF) | payer BC, SELFPAY ==
--- NOTE | ~2025-05-15 | US_ITS ---
PROCEDURE: ULTRASOUND-GUIDED BIOPSY PROSTATE CLINICAL INFORMATION: Elevated PSA COMPARISON: None available. TECHNIQUE: Transrectal ultrasound guidance provided for prostate biopsy. FINDINGS: The prostate gland is slightly enlarged and measures 5.1 x 3.8 x 4.5 cm, volume 42 mL. Submitted images demonstrate needle placement in the bilateral prostate gland. US/US biopsy prostate IMPRESSION: Ultrasound guidance for prostate biopsy. Electronically signed by: Madhavi Flynn MD 05/15/2025 09:27 AM [facility] [place]
--- OUTSIDE RECORDS SUMMARY | 2025-05-15 07:44 | XMS_ITS | Patient Health Record ---
Author Organization [facility] Address [address] [place] [address] Care Team Providers Care Jewelry Sales Coordinator Name Role Phone Donald (RETIRED) Lamont MOSS Primary Care Provider Unavailable Stan Conner Unavailable [phone] Allergies Allergen (clinical drug ingredient) Drug/Non Drug Allergy documented on EMR Reaction Allergy Type Onset Date Status Penicillin Unknown Drug Allergy Active Reason For Referral No Information Medications Medication SIG (Take, Route, Fr equency, Duration) Notes Start Date End Date Status Multivitamin & Mineral Active Social History Social History Additional Details Category Social Info Options Details Miscellaneous: Marital status: single 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 Section Notes: Nonsmoker; occasional alcoho l Problems Problem Type SNOMED Code ICD Code Onset Dates Problem Status W/U Status Risk Notes Problem Abnormal feces ([id number]) Heme + stool (R19.5) Active confirmed Plan Of Treatment Future Test Test Name Order Date COLONOSCOPY 08/20/2015 Insurance Providers Payer Name Payer Address Payer Phone Subscriber Number Group Number Insured Name Patient Relationship to Insured Coverage Start Date Coverage End Date [facility] [address] [place], [place] [id number]N Self - patient is the insured Medical (General) History Medical History History ICD Code Denies AK,DM,CVA,Lung disease,renal dise ase Surgical History Surgery Date(Month/Year) Right knee approx. 2003
--- NOTE | 2025-05-15 08:34 | P.OP_ITS ---
Operative Note Operative Note Date of Service: 05/15/25 Narrative: Preoperative diagnosis: Elevated PSA Postoperative diagnosis: Elevated PSA Procedure: 1. transrectal ultrasound measurement of prostate 2. transrectal ultrasound-guided pudendal nerve block 3. transrectal ultrasound-guided prostate biopsy 12 core Surgeon: Dr. Art Fuller Anesthetic: 10cc 1% lidocaine Indications for procedure: Elevated PSA - 5.9 17% Counselling: Technical aspects, risks and benefits of proposed procedure were discussed in full. All questions have been answered, written consent has been obtained and patient agrees to proceed. Procedure: The patient was brought into the procedure area and placed in a left lateral decubitus position. Patient identity confirmed. Perioperative antibiotics confirmed. Safety pause time out performed. YESSI was performed to dilate rectal sphincter Iodine 10cc with 60 cc gel was placed per rectum to reduce infection risk using a catheter tip syringe. 8 Hz Judy rectal end-fire ultrasound probe was placed transrectally without difficulty. The prostate was visualized. Seminal vesicles were normal. Prostate margins were clearly demarcated. Bladder was seen superiorly. No cystic structures were noted Yes - minor calcifications were noted at the surgical margin The prostate was otherwise homogeneous in nature. No clear evidence of prostatic lesions. The prostate was measured in 3 dimensions Prostatic Width: 5.1 cm Prostatic Height: 3.8 cm Urethral Length: 4.5 cm Total volume equals : 45 ml An ultrasound-guided pudendal nerve block was performed using a 22 gauge spinal needle in the sagittal plane. 4 cc of 1% lidocaine placed at the junction of each seminal vesicle and 2 cc placed at the apex of the prostate. A 12 core biopsy was performed with 6 cores each side using an 18 gauge prostate biopsy gun. Two cores each were taken at the prostate apex, mid and base on each side. Cores were spaced between lateral and medial aspects. Each core was examined as placed on specimen foam as part of quality control engineering technician to ensure a minimum 1 cm of length and minimal discontinuity. He tolerated the procedure well with minimal rectal bleeding. Blood pressure remained stable following procedure. He was able to ambulate to bathroom after 5 minutes. Printed instructions regarding antibiotic use and common adverse events from the procedure such as low-grade temperature, potential infection and bleeding were given. He understands to call the office or go to an emergency room should any of these events arise. Pathology: 12 core prostate biopsy. CPT code 10768: Transrectal ultrasound; this is a diagnostic test for evaluation of the prostate and surrounding structures, looking for abnormalities or suspicious areas worrisome for cancer CPT code 51946: Biopsy, prostate; needle or punch, single or multiple, any approach CPT code 52045: Ultrasonic guidance for needle placement (eg, biopsy, aspiration, injection, localization device), imaging supervision and interpretation
[2025-05-15] MEDS: Lidocaine HCl 1 % MPF 5 ML VIAL 10 ML SUBCUT (08:45)
== END 2025-05-15 07:41 | disposition home or self-care (01) ==
LOC: HO.US 07:40
PROVIDERS: PCP Internal Medicine; Visit Provider Urology
DX: R97.20 Elevated prostate specific antigen [PSA] (principal)
CPT/HCPCS: 55700; 76942; 88305; 88344; J2003

== ENCOUNTER → 2025-05-15 07:40 | Outpatient (BNV) | payer BC, SELFPAY | PROVIDERS: PCP Internal Medicine; Visit Provider Urology | DX: R97.20 Elevated prostate specific antigen [PSA] (principal) | CPT/HCPCS: 55700; 76872; 76942 ==

== ENCOUNTER → 2025-05-15 07:41 | Outpatient (BNV) | payer BC, SELFPAY | PROVIDERS: PCP Internal Medicine; Visit Provider Radiology Diagnostic Radiology | DX: R97.20 Elevated prostate specific antigen [PSA] (principal) | CPT/HCPCS: 76942 ==

== ENCOUNTER 2025-05-28 08:58 | Outpatient (AMB) | payer BC, SELFPAY ==
--- NOTE | 2025-05-28 09:00 | A.OFFVIS_ITS ---
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 He is a patient of Dr. Rea. He is seen for the following urologic conditions - low testosterone - elevated PSA Telemedicine Evaluation 15 min Consultation [facility] Video Discussed biopsy results PSA 02/15 3.7, 10/18 4.1, 03/20 6.8 % free PSA 17% Testosterone levels 12/16 141, 02/15 278 free testosterone 38.9, 03/20 264 Initial evaluation consistent with presumed prostatitis Bladder ultrasound prostate 25 cm TRUS volume 45 g Prostate biopsy 05/20 - patchy atrophy Given prior history of metabolic syndrome testosterone replacement could be considered Has had 30 lb weight loss on medications We will repeat lab work in three-month [facility] Medical History History of BPH Pre-diabetes Chronic back pain Trigger finger, right ring finger Trigger finger, left ring finger Right knee pain Low HDL (under 40) Neuropathy Hypertriglyceridemia Hyperlipidemia LDL goal <100 Hypercholesteremia Class 1 obesity with body mass index (BMI) of 34.0 to 34.9 in adult Hypertension Surgical History (Updated 05/28/25 @ 09:01 by SHAINA Lorenz) History of prostate biopsy Family History Father Heart attack BP (high blood pressure) Mother Heart problem Social History Housing: House Alcohol intake: current Alcohol intake frequency: a few times a week Alcohol type: beer Patient Tobacco Use Status: Never used Tobacco service: No Current occupational status: employed Cognitive needs: No Hearing needs: No Vision needs: Yes (reading glasses) Review of Systems Const All systems reviewed & are unremarkable except as noted in HPI and below Reports no additional complaints Resp Reports no additional complaints GI Reports no additional complaints Reports as per HPI Musc Reports no additional complaints Physical Exam Telemedicine evaluation Appropriate responses Regular breathing rate and rhythm HEENT Head: Yes normal to inspection Ears: hearing grossly normal bilaterally Eyes General: appearance normal, both eyes and all related structures Neck Neck: Yes normal visual inspection Chest Chest palpation & inspection: normal inspection of the chest Resp Effort & Inspection: normal respiratory effort and able to speak in complete sentences Telehealth Telehealth Telehealth Platform: [facility] Location of provider rendering services: practice address Location of patient: address on file Patient Identification confirmed using: Name, : Yes Telehealth method: video Patient verbally consented to treatment: Yes Patient verbally consented to billing insurance company: Yes Patient informed of any privacy concerns related to visit: Yes Minutes spent on Phone/Video with Pt.: 15 Assessment & Plan Assessment & Plan (1) Elevated PSA: Code(s): R97.20 - Elevated prostate specific antigen [PSA] Category: Medical (2) Acute prostatitis: Code(s): N41.0 - Acute prostatitis Category: Medical (3) Hypogonadism in male: Code(s): E29.1 - Testicular hypofunction Category: Medical Plan Ten week follow-up lab work Three-month follow-up visit Orders: Orders Testosterone, Free/Total 10 Weeks E29.1 - Testicular hypofunction Lutenizing Hormone 10 Weeks E29.1 - Testicular hypofunction Estrad Free (Tot Ultra + Free) 10 Weeks E29.1 - Testicular hypofunction Patient Instructions: This note is constructed using voice recognition software. While every effort has been made to ensure accuracy machine shop supervisor errors may have been included. Imaging studies, laboratory and physical exam results were discussed and reviewed in detail. No major barriers to patient understanding were identified. An opportunity to ask questions regarding the treatment plan was provided. All questions were answered. The patient expressed understanding and agreement with the above treatment plan. The patient is aware they should contact our office by phone for worsening of their current condition or the appearance of new urologic symptoms. Compliance is encouraged with any medications and followup testing that is ordered. It is a privilege to participate in the urologic care of your patient. If you have any questions or concerns regarding treatment for the above conditions, or other urologic issues, please do not hesitate to contact me. The office telephone contact is [phone]. Sincerely, Dr Art Fuller MD, [facility] - Urology Compassionate Specialist Care for the Genitourinary System Coding Level of Care Code Tele Est Pt Level 3 (97299) Complex visit Add On G2211 Diagnoses Elevated PSA R97.20 Acute prostatitis N41.0 Hypogonadism in male E29.1
== END 2025-05-28 11:12 | disposition home or self-care (01) ==
LOC: HO.HUSH 08:58
PROVIDERS: PCP Internal Medicine; Visit Provider Urology
DX: R97.20 Elevated prostate specific antigen [PSA] (principal); N41.0 Acute prostatitis; E29.1 Testicular hypofunction
CPT/HCPCS: 99213